=== PATIENT | male | born 1990 | race African-American/Black ===

== ENCOUNTER 2016-11-07 14:56 | Emergency (ER) | payer MEDICAID ==
[~2016-11-07] VITALS: Ht 177.8 cm; Wt 75.0 kg
[~2016-11-07 14:56] MED LIST: ALPR0.5T96 PO; CIPR-213 PO; DIAZ-56 PO; GABA-531 PO; LORA1TAB PO; MESA1.2T PO; METR-112 PO; OLAN10TA3 PO; OMEP20TA80 PO; PENTASA PO; PRED5TAB48 PO
[2016-11-07] MEDS ORDERED: ONDANSETRON HCL 4MG/2ML VIAL IV STA (15:43)
[2016-11-07] MEDS ORDERED: SODIUM CHLORIDE 0.9% 1,000 ML IV ONE (15:43)
[2016-11-07] MEDS ORDERED: MORPHINE SULFATE 4 MG/ML CPJ (NOT FOR IM USE) IV STA (15:43)
[2016-11-07 16:33] LABS: CHLORIDE 106 mEq/L (98-107); INDEX HEMOLYSI 1 (1-3); INDEX ICTERIC 1 (1-4); INDEX LIPEMIC 1 (1-3)
[2016-11-07 16:38] LABS: ALBUMIN 4.3 g/dL (3.4-5.0); ANION GAP 10; CALCIUM 9.4 mg/dL (8.5-10.1); CARBON DIOXIDE 27 mEq/L (21-32); LIPASE 63 IU/L (73-393); UREA NITROGEN BLOOD 8 mg/dL (7-21)
[2016-11-07 16:41] LABS: ALANINE AMINOTRANSFERASE 20 IU/L (13-61); eGFR > 60 mL/min (>60)
[2016-11-07] MEDS ORDERED: KETOROLAC 30MG/ML VIAL IV ONE (18:00)
[2016-11-07] MEDS ORDERED: MORPHINE SULFATE 4 MG/ML CPJ (NOT FOR IM USE) IV ONE (19:15)
[2016-11-07 21:27] LABS: BASOPHILS % 0.4 % (0.0-2.0); DIFFERENTIAL COMMENT 0; EOSINOPHILS % 0.1 % (0.0-5.0); HEMATOCRIT. 38.4 % (42.0-52.0); HEMOGLOBIN. 12.5 g/dL (14.0-18.0); MEAN CORPUSCULAR HEMOGLOBIN 25.7 pg (28.0-32.0); MEAN CORPUSCULAR HGB CONC 32.5 g/dL (31.0-37.0); MEAN PLATELET VOLUME 7.5 fl (7.4-10.4); MONOCYTES % 6.9 % (2.0-8.0); NEUTROPHILS % 82.6 % (40.0-76.0); PLATELET 163 x1000/uL (130-400); RED BLOOD CELL COUNT 4.86 mill/uL (4.7-6.1); RED CELL DISTRIBUTION WIDTH 13.8 % (11.6-14.6); WHITE BLOOD COUNT 11.8 x1000/uL (4.5-11.0)
[2016-11-07 21:33] LABS: INR 1.1; PROTHROMBIN TIME 11.4 sec
[2016-11-07 21:40] LABS: CLARITY URINE CLEAR (CLEAR); COLOR URINE YELLOW (YELLOW); GLUCOSE URINE NEGATIVE (NEGATIVE); KETONES URINE NEGATIVE (NEGATIVE); LEUKOCYTE ESTERASE URINE NEGATIVE (NEGATIVE); NITRITE URINE NEGATIVE (NEGATIVE); OCCULT BLOOD URINE NEGATIVE (NEGATIVE); PH URINE 6.5 (4.5-8.0); PROTEIN URINE NEGATIVE (NEGATIVE); SPECIFIC GRAVITY URINE 1.017 (1.005-1.030)
[2016-11-07 23:16] VITALS: BP 105/65
== END 2016-11-07 23:35 | disposition home or self-care (01) ==
LOC: ER 14:56
DX: R10.9 Unspecified abdominal pain (principal); K50.90 Crohn's disease, unspecified, without complications; F12.10 Cannabis abuse, uncomplicated
CPT/HCPCS: 36415; 80053; 81003; 83690; 85025; 85610; 96361; 96374; 96375; 96376; 99285; C1893; J1885; J2270; J2405; J7030; Z7610

== ENCOUNTER 2016-11-11 15:54 | Emergency (ER) | payer MEDICAID ==
[~2016-11-11] VITALS: Ht 170.2 cm; Wt 70.0 kg
[2016-11-11 15:59] VITALS: BP 108/64
== END 2016-11-11 23:09 | disposition left against medical advice (07) ==
LOC: ER 15:56
DX: R10.9 Unspecified abdominal pain (principal); Z53.21 Procedure and treatment not carried out due to patient leaving prior to being seen by health care provider

== ENCOUNTER 2016-11-11 16:33 | Emergency (ER) | payer MEDICAID ==
[~2016-11-11] VITALS: Ht 170.2 cm; Wt 54.0 kg
[2016-11-11 16:51] VITALS: BP 119/72
== END 2016-11-11 22:58 | disposition left against medical advice (07) ==
LOC: ER 22:15
DX: R10.9 Unspecified abdominal pain (principal); Z53.21 Procedure and treatment not carried out due to patient leaving prior to being seen by health care provider

== ENCOUNTER 2017-03-23 13:43 | Inpatient (IN) | payer MEDICAID ==
[~2017-03-23] VITALS: Ht 175.3 cm; Wt 51.7 kg
[~2017-03-23 13:43] MED LIST changes: +ALPR0.5T PO; -ALPR0.5T96 PO; -DIAZ-56 PO; +DIAZ5TAB PO; -METR-112 PO; +METR500T4 PO; +OMEP20TA2 PO; -OMEP20TA80 PO
[2017-03-23] MEDS ORDERED: ONDANSETRON HCL 4MG/2ML VIAL IV STA (14:51)
[2017-03-23] MEDS ORDERED: MORPHINE SULFATE 4 MG/ML CPJ (NOT FOR IM USE) IV STA (14:51)
[2017-03-23] MEDS ORDERED: SODIUM CHLORIDE 0.9% 1,000 ML IV ONE ×2 (14:51→18:23)
[2017-03-23] MEDS ORDERED: LORAZEPAM 2MG/ML CPJ IV ONE ×3 (15:00→21:30)
[2017-03-23 15:20] LABS: CHLORIDE 106 mEq/L (98-107)
[2017-03-23 15:24] LABS: INR 1.1; PROTHROMBIN TIME 11.9 sec (9.4-11.6)
[2017-03-23 15:25] LABS: CARBON DIOXIDE 24 mEq/L (21-32)
[2017-03-23 15:26] LABS: HEMATOCRIT. 48.6 % (42.0-52.0); HEMOGLOBIN. 15.9 g/dL (14.0-18.0); MEAN CORPUSCULAR HEMOGLOBIN 26.7 pg (28.0-32.0); MEAN CORPUSCULAR VOLUME 81.4 fL (80.0-94.0); MEAN PLATELET VOLUME 9.4 fl (7.4-10.4); PLATELET 192 x1000/uL (130-400); RED BLOOD CELL COUNT 5.97 mill/uL (4.7-6.1); RED CELL DISTRIBUTION WIDTH 13.6 % (11.6-14.6)
[2017-03-23 16:08] LABS: PLATELET ESTIMATE NORMAL
[2017-03-23 18:54] LABS: CLARITY URINE CLOUDY (CLEAR); COLOR URINE DARK YELLOW (YELLOW); GLUCOSE URINE NEGATIVE (NEGATIVE); KETONES URINE 1+ (NEGATIVE); LEUKOCYTE ESTERASE URINE NEGATIVE (NEGATIVE); NITRITE URINE NEGATIVE (NEGATIVE); OCCULT BLOOD URINE 2+ (NEGATIVE); PROTEIN URINE 2+ (NEGATIVE); SPECIFIC GRAVITY URINE 1.038 (1.005-1.030)
[2017-03-23 19:08] LABS: *AMPHETAMINES SCREEN URINE NEGATIVE (NEGATIVE); *BARBITURATES SCREEN URINE NEGATIVE (NEGATIVE); *BENZODIAZEPINES SCREEN URINE NEGATIVE (NEGATIVE); *COCAINE SCREEN URINE NEGATIVE (NEGATIVE); CANNABINOID URINE SCREEN PRESUMTIVE POSITIVE (NEGATIVE); METHADONE URINE SCREEN NEGATIVE (NEGATIVE); OPIATES URINE SCREEN PRESUMTIVE POSITIVE (NEGATIVE); PHENCYCLIDINE URINE SCREEN NEGATIVE (NEGATIVE)
[2017-03-23] MEDS ORDERED: MORPHINE SULFATE 4 MG/ML CPJ (NOT FOR IM USE) IV ONE (21:15)
[2017-03-23] MEDS ORDERED: ONDANSETRON HCL 4MG/2ML VIAL IV ONE (21:15)
[2017-03-24] MEDS ORDERED: KETOROLAC 30MG/ML VIAL IV ONE (04:30)
[2017-03-24] MEDS ORDERED: SODIUM CHLORIDE 0.9% 1,000 ML IV ONE (06:45)
[2017-03-24] MEDS ORDERED: MORPHINE SULFATE 4 MG/ML CPJ (NOT FOR IM USE) IV ONE (08:45)
[2017-03-24 12:33] VITALS: BP 107/69
[2017-03-24 12:45] VITALS: BP 107/69
[2017-03-24] MEDS ORDERED: MORPHINE SULFATE 4 MG/ML CPJ (NOT FOR IM USE) IV PRN (13:15)
[2017-03-24] MEDS ORDERED: ONDANSETRON HCL 4MG/2ML VIAL IV PRN (13:15)
[2017-03-24] MEDS ORDERED: SODIUM CHLORIDE 0.9% 1,000 ML IV SCH (14:15)
[2017-03-24] MEDS ORDERED: HYDROCODONE/ACETAMINOPHEN 10/325MG TABLET PO PRN (14:15)
[2017-03-24] MEDS ORDERED: DEXT 5%/0.45% NACL KCL 20MEQ/L 1,000 ML IV SCH (15:00)
[2017-03-24] MEDS: METRONIDAZOLE 500MG TABLET PO SCH ×2 (15:00→23:05)
[2017-03-24 16:00] VITALS: BP 114/63
[2017-03-24] MEDS: DICYCLOMINE HCL 20MG TABLET PO SCH ×2 (17:50→23:12)
[2017-03-24 20:00] VITALS: BP 115/63
[2017-03-24] MEDS: MORPHINE SULFATE 4 MG/ML CPJ (NOT FOR IM USE) IV PRN (22:59)
[2017-03-25] VITALS: BP 121/61
[2017-03-25] MEDS: MORPHINE SULFATE 4 MG/ML CPJ (NOT FOR IM USE) IV PRN ×2 (02:43→09:25)
[2017-03-25 04:00] VITALS: BP 123/64
[2017-03-25] MEDS: DICYCLOMINE HCL 20MG TABLET PO SCH ×2 (06:00→11:10)
[2017-03-25 08:00] VITALS: BP 107/60
[2017-03-25] MEDS: METRONIDAZOLE 500MG TABLET PO SCH (09:09)
[2017-03-25 12:00] VITALS: BP 109/72
[2017-03-25 15:04] VITALS: BP 109/72
== END 2017-03-25 15:20 | disposition home or self-care (01) | DRG 245 ==
LOC: ER 14:03 → 6EST 03-24 02:45 → ENRESERV 03-24 11:17
PROVIDERS: ADMIT Internal Medicine; ATTEND Internal Medicine
DX: K50.90 Crohn's disease, unspecified, without complications (principal); E83.52 Hypercalcemia; Z91.19 Patient's noncompliance with other medical treatment and regimen; Z79.2 Long term (current) use of antibiotics; Z76.5 Malingerer [conscious simulation]; Z79.899 Other long term (current) drug therapy
CPT/HCPCS: 36415; 74176; 80053; 80305; 81001; 83690; 85025; 85610; 99285; C1893; J1885; J2060; J2270; J2405; J7030

== ENCOUNTER 2017-08-09 19:16 | Inpatient (IN) | payer MEDICAID ==
[~2017-08-09] VITALS: Ht 175.3 cm; Wt 59.0 kg
[~2017-08-09 19:16] MED LIST changes: +METR-218 PO; -METR500T4 PO
[2017-08-09] MEDS ORDERED: ONDANSETRON HCL 4MG/2ML INJ IV STA (19:55)
[2017-08-09] MEDS ORDERED: MORPHINE SULFATE 4 MG/ML CPJ (NOT FOR IM USE) IV STA (19:55)
[2017-08-09] MEDS ORDERED: SODIUM CHLORIDE 0.9% 1,000 ML IV ONE (19:55)
[2017-08-09 20:29] LABS: BASOPHILS % 0.3 % (0.0-2.0); EOSINOPHILS % 0.1 % (0.0-5.0); HEMOGLOBIN. 13.9 g/dL (14.0-18.0); LYMPHOCYTES % 7.3 % (20.0-50.0); MEAN CORPUSCULAR VOLUME 81.7 fL (80.0-94.0); NEUTROPHILS % 83.3 % (40.0-76.0); PLATELET 118 x1000/uL (130-400); RED BLOOD CELL COUNT 5.13 mill/uL (4.7-6.1); RED CELL DISTRIBUTION WIDTH 12.4 % (11.6-14.6)
[2017-08-09 20:36] LABS: INR 1.2; PROTHROMBIN TIME 12.2 sec (9.4-11.6)
[2017-08-09 20:44] LABS: CHLORIDE 107 mEq/L (98-107)
[2017-08-09] MEDS ORDERED: SODIUM CHLORIDE 0.9% 1000ML BAG (SEPSIS BOLUS) IV ONE (22:15)
[2017-08-09] MEDS ORDERED: IPRATROPIUM/ALBUTEROL 0.5-3(2.5)MG/3ML NEB INH PRN (23:00)
[2017-08-09] MEDS ORDERED: ACETAMINOPHEN 650MG/20.3ML UDC GT PRN (23:00)
[2017-08-09] MEDS ORDERED: HYDROCODONE/ACETAMINOPHEN 5/325MG TABLET PO PRN (23:00)
[2017-08-09] MEDS ORDERED: DIPHENHYDRAMINE 50MG/ML VIAL IV PRN (23:00)
[2017-08-09] MEDS ORDERED: CLONIDINE 0.1MG TABLET PO PRN (23:00)
[2017-08-09] MEDS ORDERED: ACETAMINOPHEN 325MG TABLET PO PRN (23:00)
[2017-08-09] MEDS ORDERED: ACETAMINOPHEN 650MG SUPP PR PRN (23:00)
[2017-08-09] MEDS ORDERED: MAGNESIUM/ALUMINUM HYDROXIDE/SIMETHICONE 30ML UDC PO PRN (23:00)
[2017-08-09] MEDS ORDERED: DOCUSATE SODIUM 100MG CAPSULE PO PRN (23:00)
[2017-08-09] MEDS ORDERED: GUAIFENESIN 200MG/10ML SUGAR FREE UDC PO PRN (23:00)
[2017-08-09] MEDS ORDERED: ONDANSETRON HCL 4MG/2ML INJ IV PRN (23:00)
[2017-08-10] VITALS (7 sets, daily range): BP systolic 125–140; BP diastolic 77–91
[2017-08-10] MEDS ORDERED: METOCLOPRAMIDE HCL 10MG/2ML VIAL IV SCH
[2017-08-10] MEDS ORDERED: NA PHOS,M-B/NA PHOS,DI-BA ENEMA 118ML PR PRN (01:07)
[2017-08-10] MEDS: MORPHINE SULFATE 4 MG/ML CPJ (NOT FOR IM USE) IV PRN ×2 (01:26→06:14)
[2017-08-10] MEDS: SODIUM CHLORIDE 0.45% 1,000 ML IV SCH ×2 (05:42→13:37)
[2017-08-10 07:30] LABS: CLARITY URINE CLEAR (CLEAR); COLOR URINE YELLOW (YELLOW); KETONES URINE TRACE (NEGATIVE); LEUKOCYTE ESTERASE URINE NEGATIVE (NEGATIVE); NITRITE URINE NEGATIVE (NEGATIVE); OCCULT BLOOD URINE NEGATIVE (NEGATIVE); PROTEIN URINE NEGATIVE (NEGATIVE); SPECIFIC GRAVITY URINE 1.031 (1.005-1.030); UROBILINOGEN URINE 0.2 E.U./dL (0.2-1.0)
[2017-08-10 07:31] LABS: BASOPHILS % 0.4 % (0.0-2.0); EOSINOPHILS % 2.6 % (0.0-5.0); HEMATOCRIT. 40.9 % (42.0-52.0); HEMOGLOBIN. 13.4 g/dL (14.0-18.0); LYMPHOCYTES % 19.3 % (20.0-50.0); MEAN CORPUSCULAR HEMOGLOBIN 26.9 pg (28.0-32.0); MEAN CORPUSCULAR VOLUME 82.3 fL (80.0-94.0); MEAN PLATELET VOLUME 9.4 fl (7.4-10.4); MONOCYTES % 10.5 % (2.0-8.0); NEUTROPHILS % 67.2 % (40.0-76.0); PLATELET 125 x1000/uL (130-400); RED BLOOD CELL COUNT 4.97 mill/uL (4.7-6.1); RED CELL DISTRIBUTION WIDTH 12.4 % (11.6-14.6)
[2017-08-10 07:45] LABS: CHLORIDE 108 mEq/L (98-107)
[2017-08-10 07:54] LABS: HDL CHOLESTEROL 29 mg/dL (40-59); LDL CHOLESTEROL 67 mg/dL (5-100)
[2017-08-10 07:58] LABS: *AMPHETAMINES SCREEN URINE NEGATIVE (NEGATIVE); *BARBITURATES SCREEN URINE NEGATIVE (NEGATIVE); *BENZODIAZEPINES SCREEN URINE NEGATIVE (NEGATIVE); *COCAINE SCREEN URINE NEGATIVE (NEGATIVE); CANNABINOID URINE SCREEN PRESUMTIVE POSITIVE (NEGATIVE); METHADONE URINE SCREEN NEGATIVE (NEGATIVE); OPIATES URINE SCREEN PRESUMTIVE POSITIVE (NEGATIVE); PHENCYCLIDINE URINE SCREEN NEGATIVE (NEGATIVE)
[2017-08-10] MEDS ORDERED: ENOXAPARIN 40MG/0.4ML SYR SUBCUT SCH (09:00)
[2017-08-10] MEDS ORDERED: FAMOTIDINE 20MG/2ML VIAL IV SCH (09:00)
[2017-08-10] MEDS: METOCLOPRAMIDE HCL 10MG TABLET PO SCH ×2 (12:34→18:30)
[2017-08-10] MEDS ORDERED: METHYLPREDNISOLONE SOD SUCC 40 MG/ML VIAL IV SCH (14:50)
[2017-08-10] MEDS ORDERED: MESALAMINE 250MG CAPSULE EXTENDED RELEASE PO SCH (22:15)
== END 2017-08-10 22:37 | disposition left against medical advice (07) | DRG 282 ==
LOC: ER 19:28 → 6EST 22:23 → EDBEDREQ 22:28 → EDBEDREQTM 22:28 → ENRESERV 22:33
PROVIDERS: ADMIT Family Medicine; ATTEND Family Medicine
DX: K85.90 Acute pancreatitis without necrosis or infection, unspecified (principal); E87.2 Acidosis; M62.82 Rhabdomyolysis; K50.90 Crohn's disease, unspecified, without complications; F20.9 Schizophrenia, unspecified; Z53.21 Procedure and treatment not carried out due to patient leaving prior to being seen by health care provider; Z79.899 Other long term (current) drug therapy; E86.0 Dehydration; F31.9 Bipolar disorder, unspecified
CPT/HCPCS: 36415; 74022; 80061; 80305; 83605; 83880; 84484; 93005; 96361; 96374; 96375; 99285; J1650; J2270; J2405; J2920; J3490; J7030; J8597

== ENCOUNTER 2018-07-21 10:34 | Inpatient (IN) | payer MEDICAID ==
[~2018-07-21] VITALS: Ht 170.2 cm; Wt 51.7 kg
[~2018-07-21 10:34] MED LIST changes: -CIPR-213 PO; -METR-218 PO
[2018-07-21] MEDS ORDERED: SODIUM CHLORIDE 0.9% 1,000 ML IV ONE (11:06)
[2018-07-21] MEDS ORDERED: KETOROLAC 30MG/ML VIAL IV STA (11:06)
[2018-07-21 11:40] LABS: HEMATOCRIT. 57.3 % (42.0-52.0); HEMOGLOBIN. 18.9 g/dL (14.0-18.0); MEAN CORPUSCULAR HEMOGLOBIN 26.6 pg (28.0-32.0); MEAN CORPUSCULAR VOLUME 80.8 fL (80.0-94.0); MEAN PLATELET VOLUME 8.3 fl (7.4-10.4); PLATELET 317 x1000/uL (130-400); RED CELL DISTRIBUTION WIDTH 13.7 % (11.6-14.6)
[2018-07-21 12:46] LABS: PLATELET ESTIMATE NORMAL
[2018-07-21 12:50] LABS: CHLORIDE 102 mEq/L (98-107)
[2018-07-21 12:51] LABS: INR 1.1; PROTHROMBIN TIME 10.8 sec (9.1-11.1)
[2018-07-21] MEDS ORDERED: MAGNESIUM/ALUMINUM HYDROXIDE/SIMETHICONE 30ML UDC PO PRN (14:15)
[2018-07-21] MEDS ORDERED: DIPHENHYDRAMINE 50MG/ML VIAL IV PRN (14:15)
[2018-07-21] MEDS ORDERED: NA PHOS,M-B/NA PHOS,DI-BA ENEMA 118ML PR PRN (14:15)
[2018-07-21] MEDS ORDERED: ONDANSETRON HCL 4MG/2ML INJ IV PRN (14:15)
[2018-07-21] MEDS ORDERED: IPRATROPIUM/ALBUTEROL 0.5-3(2.5)MG/3ML NEB INH PRN (14:15)
[2018-07-21] MEDS ORDERED: DOCUSATE SODIUM 100MG CAPSULE PO PRN (14:15)
[2018-07-21] MEDS ORDERED: LEVOFLOXACIN 500MG PREMIX 100 ML IV SCH ×2 (14:15→14:51)
[2018-07-21] MEDS ORDERED: ACETAMINOPHEN 325MG TABLET PO PRN (14:15)
[2018-07-21] MEDS ORDERED: CLONIDINE 0.1MG TABLET PO PRN (14:15)
[2018-07-21] MEDS ORDERED: GUAIFENESIN 200MG/10ML SUGAR FREE UDC PO PRN (14:15)
[2018-07-21] MEDS: METHYLPREDNISOLONE SOD SUCC 125 MG/2 ML VIAL IV SCH (14:49)
[2018-07-21 16:00] VITALS: BP 112/68
[2018-07-21] MEDS: HYDROCODONE/ACETAMINOPHEN 10/325MG TABLET PO PRN (16:09)
[2018-07-21] MEDS: LORAZEPAM 2MG/ML CPJ IV PRN (16:09)
[2018-07-21] MEDS: MORPHINE SULFATE 4 MG/ML CPJ (NOT FOR IM USE) IV PRN (17:46)
[2018-07-21 17:55] VITALS: BP 118/68
[2018-07-21] MEDS ORDERED: LEVOFLOXACIN 500MG PREMIX 100 ML IV NR (19:30)
[2018-07-21 20:00] VITALS: BP 104/68
[2018-07-21] MEDS: SODIUM CHLORIDE 0.45% 1,000 ML IV SCH (21:20)
[2018-07-21] MEDS: METRONIDAZOLE 500 MG PREMIX 100 ML IV SCH (23:03)
[2018-07-21] MEDS: HYDROMORPHONE HCL/PF 2MG/ML CPJ IV PRN (23:03)
[2018-07-22] VITALS (7 sets, daily range): BP systolic 108–157; BP diastolic 60–76
[2018-07-22] MEDS: METHYLPREDNISOLONE SOD SUCC 125 MG/2 ML VIAL IV SCH ×5 (00:53→23:11)
[2018-07-22] MEDS: LORAZEPAM 2MG/ML CPJ IV PRN ×2 (01:03→13:51)
[2018-07-22] MEDS: SODIUM CHLORIDE 0.45% 1,000 ML IV SCH (03:12)
[2018-07-22] MEDS: HYDROMORPHONE HCL/PF 2MG/ML CPJ IV PRN ×5 (03:18→23:15)
[2018-07-22] MEDS: MORPHINE SULFATE 4 MG/ML CPJ (NOT FOR IM USE) IV PRN ×3 (04:49→16:58)
[2018-07-22] MEDS: METRONIDAZOLE 500 MG PREMIX 100 ML IV SCH ×3 (05:52→23:10)
[2018-07-22] MEDS: DEXT 5%/0.45% NACL 1000ML 1,000 ML IV SCH (15:00)
[2018-07-22 18:38] LABS: HEMATOCRIT. 47.1 % (42.0-52.0); HEMOGLOBIN. 15.4 g/dL (14.0-18.0); MEAN CORPUSCULAR HEMOGLOBIN 26.3 pg (28.0-32.0); MEAN CORPUSCULAR VOLUME 80.8 fL (80.0-94.0); MEAN PLATELET VOLUME 8.7 fl (7.4-10.4); PLATELET 213 x1000/uL (130-400); RED BLOOD CELL COUNT 5.83 mill/uL (4.7-6.1); RED CELL DISTRIBUTION WIDTH 13.2 % (11.6-14.6)
[2018-07-22 18:41] LABS: CHLORIDE 104 mEq/L (98-107)
[2018-07-22 18:52] LABS: T4 FREE 0.89 ng/dL (0.76-1.46)
[2018-07-22 19:02] LABS: CREATINE KINASE 1884 IU/L (39-308)
[2018-07-22] MEDS: HYDROCODONE/ACETAMINOPHEN 10/325MG TABLET PO PRN (20:01)
[2018-07-22 22:27] LABS: PLATELET ESTIMATE NORMAL
[2018-07-23] MEDS: DEXT 5%/0.45% NACL 1000ML 1,000 ML IV SCH ×2 (02:08→11:00)
[2018-07-23] MEDS: HYDROMORPHONE HCL/PF 2MG/ML CPJ IV PRN ×7 (02:16→21:09)
[2018-07-23] MEDS: METRONIDAZOLE 500 MG PREMIX 100 ML IV SCH ×3 (05:10→21:08)
[2018-07-23] MEDS: METHYLPREDNISOLONE SOD SUCC 125 MG/2 ML VIAL IV SCH ×3 (05:10→17:26)
[2018-07-23 05:15] VITALS: BP 106/72
[2018-07-23 08:14] VITALS: BP 132/72
[2018-07-23 12:58] VITALS: BP 113/73
[2018-07-23] MEDS: SODIUM BICARBONATE 50 MEQ in DEXTROSE 5% WATER 1,000 ML IV SCH (14:00)
[2018-07-23] MEDS ORDERED: LEVOFLOXACIN 250MG PREMIX 50 ML IV SCH ×2 (14:00→18:00)
[2018-07-23 16:00] VITALS: BP 106/64
[2018-07-23] MEDS: SODIUM POLYSTYRENE SULFONATE 15 G/60 ML BOT PO NR ×2 (16:00→16:51)
[2018-07-23 19:09] LABS: HEMATOCRIT. 43.8 % (42.0-52.0); HEMOGLOBIN. 14.3 g/dL (14.0-18.0); MEAN CORPUSCULAR HEMOGLOBIN 26.2 pg (28.0-32.0); MEAN CORPUSCULAR VOLUME 80.5 fL (80.0-94.0); MEAN PLATELET VOLUME 8.4 fl (7.4-10.4); PLATELET 190 x1000/uL (130-400); RED BLOOD CELL COUNT 5.44 mill/uL (4.7-6.1); RED CELL DISTRIBUTION WIDTH 12.8 % (11.6-14.6)
[2018-07-23 19:18] LABS: CHLORIDE 100 mEq/L (98-107)
[2018-07-23 20:00] VITALS: BP 130/72
[2018-07-23 21:10] LABS: PLATELET ESTIMATE NORMAL
[2018-07-24] VITALS: BP 117/62
[2018-07-24] MEDS ORDERED: PANTOPRAZOLE SODIUM 40 MG/VIAL IV NR
[2018-07-24] MEDS: METHYLPREDNISOLONE SOD SUCC 125 MG/2 ML VIAL IV SCH ×5 (00:14→23:45)
[2018-07-24] MEDS: HYDROMORPHONE HCL/PF 2MG/ML CPJ IV PRN ×6 (00:15→21:23)
[2018-07-24] MEDS: SODIUM BICARBONATE 50 MEQ in DEXTROSE 5% WATER 1,000 ML IV SCH ×2 (01:49→05:49)
[2018-07-24 04:00] VITALS: BP 106/64
[2018-07-24] MEDS: METRONIDAZOLE 500 MG PREMIX 100 ML IV SCH ×3 (05:47→23:46)
[2018-07-24 06:50] LABS: HEMATOCRIT. 46.9 % (42.0-52.0); HEMOGLOBIN. 15.2 g/dL (14.0-18.0); MEAN CORPUSCULAR HEMOGLOBIN 26.4 pg (28.0-32.0); MEAN CORPUSCULAR VOLUME 81.3 fL (80.0-94.0); MEAN PLATELET VOLUME 8.5 fl (7.4-10.4); PLATELET 169 x1000/uL (130-400); RED BLOOD CELL COUNT 5.77 mill/uL (4.7-6.1)
[2018-07-24 07:01] LABS: CHLORIDE 100 mEq/L (98-107)
[2018-07-24 07:22] LABS: CREATINE KINASE 594 IU/L (39-308)
[2018-07-24 08:00] VITALS: BP 109/66
[2018-07-24] MEDS: DEXT 5%/0.9% NACL 1,000 ML IV SCH ×2 (10:07→21:22)
[2018-07-24 12:00] VITALS: BP 108/65
[2018-07-24 12:26] LABS: PLATELET ESTIMATE NORMAL
[2018-07-24] MEDS ORDERED: LEVOFLOXACIN 500MG PREMIX 100 ML IV SCH (15:30)
[2018-07-24 16:00] VITALS: BP 118/75
[2018-07-24 20:00] VITALS: BP 117/68
[2018-07-24] MEDS: MUPIROCIN 2% OINT 22GM NS SCH (23:46)
[2018-07-25] VITALS: BP 111/64
[2018-07-25] MEDS: HYDROMORPHONE HCL/PF 2MG/ML CPJ IV PRN ×7 (01:10→23:35)
[2018-07-25 04:00] VITALS: BP 105/59
[2018-07-25] MEDS: METHYLPREDNISOLONE SOD SUCC 125 MG/2 ML VIAL IV SCH ×4 (06:08→23:34)
[2018-07-25] MEDS: DEXT 5%/0.9% NACL 1,000 ML IV SCH (06:09)
[2018-07-25 07:21] LABS: HEMATOCRIT. 43.2 % (42.0-52.0); HEMOGLOBIN. 13.9 g/dL (14.0-18.0); MEAN CORPUSCULAR HEMOGLOBIN 26.5 pg (28.0-32.0); MEAN CORPUSCULAR VOLUME 81.9 fL (80.0-94.0); MEAN PLATELET VOLUME 9.1 fl (7.4-10.4); PLATELET 124 x1000/uL (130-400); RED BLOOD CELL COUNT 5.27 mill/uL (4.7-6.1); RED CELL DISTRIBUTION WIDTH 12.7 % (11.6-14.6)
[2018-07-25 07:43] LABS: CHLORIDE 106 mEq/L (98-107)
[2018-07-25 07:57] LABS: CREATINE KINASE 212 IU/L (39-308)
[2018-07-25 08:00] VITALS: BP 111/63
[2018-07-25] MEDS: METRONIDAZOLE 500 MG PREMIX 100 ML IV SCH ×3 (09:26→23:35)
[2018-07-25] MEDS: MUPIROCIN 2% OINT 22GM NS SCH ×2 (09:30→21:38)
[2018-07-25] MEDS ORDERED: HYDROCODONE/ACETAMINOPHEN 5/325MG TABLET PO PRN (11:45)
[2018-07-25 12:00] VITALS: BP 123/83
[2018-07-25] MEDS ORDERED: LEVOFLOXACIN 500MG PREMIX 100 ML IV SCH (18:30)
[2018-07-25 19:58] VITALS: BP 122/77
[2018-07-25 20:15] VITALS: BP 117/76
[2018-07-26] MEDS: HYDROMORPHONE HCL/PF 2MG/ML CPJ IV PRN ×2 (02:32→05:37)
[2018-07-26 04:00] VITALS: BP 115/76
[2018-07-26] MEDS: METRONIDAZOLE 500 MG PREMIX 100 ML IV SCH (05:36)
[2018-07-26] MEDS: METHYLPREDNISOLONE SOD SUCC 125 MG/2 ML VIAL IV SCH (05:36)
[2018-07-26 07:34] LABS: HEMATOCRIT. 42.1 % (42.0-52.0); HEMOGLOBIN. 13.8 g/dL (14.0-18.0); MEAN CORPUSCULAR HEMOGLOBIN 26.4 pg (28.0-32.0); MEAN CORPUSCULAR VOLUME 80.7 fL (80.0-94.0); MEAN PLATELET VOLUME 8.8 fl (7.4-10.4); PLATELET 138 x1000/uL (130-400); RED BLOOD CELL COUNT 5.21 mill/uL (4.7-6.1); RED CELL DISTRIBUTION WIDTH 12.7 % (11.6-14.6)
[2018-07-26 07:38] LABS: CHLORIDE 105 mEq/L (98-107)
[2018-07-26 07:51] VITALS: BP 115/76
[2018-07-26 07:52] LABS: CREATINE KINASE 116 IU/L (39-308)
[2018-07-26 15:05] LABS: PLATELET ESTIMATE NORMAL
[2018-07-26 19:06] LABS: OVA & PARASITE EXAM Final report (.)
== END 2018-07-26 09:55 | disposition home or self-care (01) | DRG 254 ==
LOC: ER 10:40 → 7WST 14:01 → ENRESERV 15:57
PROVIDERS: ADMIT Internal Medicine; ATTEND Internal Medicine
DX: K59.00 Constipation, unspecified (principal); N17.0 Acute kidney failure with tubular necrosis; M62.82 Rhabdomyolysis; R65.10 Systemic inflammatory response syndrome (SIRS) of non-infectious origin without acute organ dysfunction; K50.90 Crohn's disease, unspecified, without complications; E87.5 Hyperkalemia; F20.9 Schizophrenia, unspecified; E86.0 Dehydration; N18.9 Chronic kidney disease, unspecified; F12.90 Cannabis use, unspecified, uncomplicated; R79.89 Other specified abnormal findings of blood chemistry; D72.829 Elevated white blood cell count, unspecified; F31.9 Bipolar disorder, unspecified; F41.9 Anxiety disorder, unspecified; G89.29 Other chronic pain; I12.9 Hypertensive chronic kidney disease with stage 1 through stage 4 chronic kidney disease, or unspecified chronic kidney disease; Z79.899 Other long term (current) drug therapy; R10.9 Unspecified abdominal pain
CPT/HCPCS: 36415; 74018; 76770; 80048; 82550; 82705; 84439; 84443; 84484; 87015; 87045; 87177; 87209; 87427; 87449; 87493; 89055; 96361; 96374; 99285; A6261; C1893; C9113; J1170; J1885; J1956; J2060; J2270; J2930; J3490; J7030; J7042; J7050; J7070

== ENCOUNTER 2018-07-26 18:39 | Emergency (ER) | payer MEDICAID ==
[~2018-07-26] VITALS: Ht 167.6 cm; Wt 60.0 kg
[2018-07-26] MEDS ORDERED: SODIUM CHLORIDE 0.9% 1,000 ML IV ONE (22:40)
[2018-07-26] MEDS ORDERED: FAMOTIDINE 20MG/2ML VIAL IV STA (22:40)
[2018-07-26] MEDS ORDERED: ONDANSETRON HCL 4MG/2ML INJ IV STA (22:40)
[2018-07-26] MEDS ORDERED: HALOPERIDOL LACTATE 5MG/ML VIAL IM ONE (22:45)
[2018-07-27 00:36] LABS: BASOPHILS % 0.3 % (0.0-2.0); EOSINOPHILS % 0.4 % (0.0-5.0); HEMOGLOBIN. 14.3 g/dL (14.0-18.0); LYMPHOCYTES % 9.2 % (20.0-50.0); MEAN CORPUSCULAR HEMOGLOBIN 26.2 pg (28.0-32.0); MEAN CORPUSCULAR VOLUME 80.6 fL (80.0-94.0); MEAN PLATELET VOLUME 8.5 fl (7.4-10.4); MONOCYTES % 12.1 % (2.0-8.0); PLATELET 146 x1000/uL (130-400); RED BLOOD CELL COUNT 5.46 mill/uL (4.7-6.1); RED CELL DISTRIBUTION WIDTH 12.8 % (11.6-14.6)
[2018-07-27 00:52] LABS: CHLORIDE 108 mEq/L (98-107)
[2018-07-27 01:30] LABS: CLARITY URINE CLEAR (CLEAR); COLOR URINE YELLOW (YELLOW); KETONES URINE NEGATIVE (NEGATIVE); LEUKOCYTE ESTERASE URINE NEGATIVE (NEGATIVE); NITRITE URINE NEGATIVE (NEGATIVE); OCCULT BLOOD URINE NEGATIVE (NEGATIVE); PROTEIN URINE NEGATIVE (NEGATIVE); SPECIFIC GRAVITY URINE 1.022 (1.005-1.030); UROBILINOGEN URINE 0.2 E.U./dL (0.2-1.0)
[2018-07-27 05:28] VITALS: BP 101/60
== END 2018-07-27 05:32 | disposition home or self-care (01) ==
LOC: ER 18:39
DX: R10.9 Unspecified abdominal pain (principal); K50.90 Crohn's disease, unspecified, without complications; N28.9 Disorder of kidney and ureter, unspecified
CPT/HCPCS: 36415; 80053; 81003; 83605; 83690; 85025; 96372; 96374; 96375; 99283; J1630; J2405; J3490; J7030; Z7610

== ENCOUNTER 2018-10-25 14:55 | Inpatient (IN) | payer MEDICAID ==
[~2018-10-25] VITALS: Ht 175.3 cm; Wt 59.0 kg
[2018-10-25] MEDS ORDERED: ONDANSETRON HCL 4MG/2ML INJ IV STA (15:25)
[2018-10-25] MEDS ORDERED: FAMOTIDINE 20MG/2ML VIAL IV STA (15:25)
[2018-10-25] MEDS ORDERED: MAGNESIUM/ALUMINUM HYDROXIDE/SIMETHICONE 30ML UDC PO STA (15:25)
[2018-10-25] MEDS ORDERED: VISCOUS LIDOCAINE 2% 15 ML UDC PO STA (15:25)
[2018-10-25 16:38] LABS: BASOPHILS % 0.2 % (0.0-2.0); EOSINOPHILS % 0.1 % (0.0-5.0); HEMATOCRIT. 47.3 % (42.0-52.0); HEMOGLOBIN. 15.8 g/dL (14.0-18.0); LYMPHOCYTES % 10.3 % (20.0-50.0); MEAN CORPUSCULAR HEMOGLOBIN 26.5 pg (28.0-32.0); MEAN CORPUSCULAR VOLUME 79.6 fL (80.0-94.0); MEAN PLATELET VOLUME 8.9 fl (7.4-10.4); NEUTROPHILS % 85.4 % (40.0-76.0); PLATELET 229 x1000/uL (130-400); RED BLOOD CELL COUNT 5.94 mill/uL (4.7-6.1); RED CELL DISTRIBUTION WIDTH 14.6 % (11.6-14.6)
[2018-10-25] MEDS ORDERED: MORPHINE SULFATE 4 MG/ML CPJ (NOT FOR IM USE) IV ONE (17:30)
[2018-10-25 17:33] LABS: CHLORIDE 105 mEq/L (98-107)
[2018-10-25] MEDS ORDERED: SODIUM CHLORIDE 0.9% 1,000 ML IV ONE (19:58)
[2018-10-25] MEDS ORDERED: MORPHINE SULFATE 4 MG/ML CPJ (NOT FOR IM USE) IV STA (19:58)
[2018-10-25] MEDS ORDERED: IOHEXOL-300 100 ML BOTTLE ONE (22:31)
[2018-10-26 05:45] VITALS: BP 122/77
[2018-10-26 08:00] VITALS: BP 159/94
[2018-10-26] MEDS ORDERED: CLONIDINE 0.1MG TABLET PO PRN (08:45)
[2018-10-26] MEDS ORDERED: IPRATROPIUM/ALBUTEROL 0.5-3(2.5)MG/3ML NEB INH PRN (08:45)
[2018-10-26] MEDS ORDERED: ACETAMINOPHEN 325MG TABLET PO PRN (08:45)
[2018-10-26] MEDS ORDERED: MAGNESIUM/ALUMINUM HYDROXIDE/SIMETHICONE 30ML UDC PO PRN (08:45)
[2018-10-26] MEDS ORDERED: ONDANSETRON HCL 4MG/2ML INJ IV PRN (08:45)
[2018-10-26] MEDS ORDERED: DOCUSATE SODIUM 100MG CAPSULE PO PRN (08:45)
[2018-10-26] MEDS ORDERED: GUAIFENESIN 200MG/10ML SUGAR FREE UDC PO PRN (08:45)
[2018-10-26] MEDS ORDERED: HYDROCODONE/ACETAMINOPHEN 5/325MG TABLET PO PRN (11:30)
[2018-10-26] MEDS: ENOXAPARIN 40MG/0.4ML SYR SUBCUT SCH (12:04)
[2018-10-26 15:50] LABS: PHOSPHORUS 4.4 mg/dL (2.5-4.9)
[2018-10-26 16:41] LABS: CREATINE KINASE MB FRACTION 613.7 ng/mL (0.5-3.6)
[2018-10-26] MEDS: MORPHINE SULFATE 4 MG/ML CPJ (NOT FOR IM USE) IV PRN ×2 (18:31→22:51)
[2018-10-26 20:00] VITALS: BP 152/94
[2018-10-27 01:32] LABS: CREATINE KINASE MB FRACTION 823.5 ng/mL (0.5-3.6)
[2018-10-27] MEDS: MORPHINE SULFATE 4 MG/ML CPJ (NOT FOR IM USE) IV PRN ×5 (03:53→23:11)
[2018-10-27 04:00] VITALS: BP 142/102
[2018-10-27 08:00] VITALS: BP 110/67
[2018-10-27] MEDS: ENOXAPARIN 40MG/0.4ML SYR SUBCUT SCH (09:44)
[2018-10-27 11:39] LABS: BG BASE EXCESS -2.6 mmol/L (-2.0-2.0); BG CARBOXYHEMOGLOBIN 1.3 % (0.5-1.5); BG DEOXYHEMOGLOBIN 2.6 % (0.0-5.0); BG FRACTION INSPIRED OXYGEN 21; BG HCO3 ACT 22.3 mmol/L (22.0-26.0); BG METHEMOGLOBIN 0.3 % (0.0-1.5); BG OXYGEN SATURATION 97.4 % (92.0-98.5); BG OXYHEMOGLOBIN 95.8 % (94.0-97.0); BG PCO2 39.1 mmHg (35.0-45.0); BG PH 7.374 (7.350-7.450); BG PO2 96.2 mmHg (75.0-100.0); BG SAMPLE SITE RIGHT RADIAL; BG TOTAL HEMOGLOBIN 15.3 g/dL (12.0-18.0); BG VENT MODE ROOM AIR
[2018-10-27 12:00] VITALS: BP 111/66
[2018-10-27 15:32] LABS: CHLORIDE 99 mEq/L (98-107)
[2018-10-27 15:34] LABS: BASOPHILS % 0.9 % (0.0-2.0); HEMATOCRIT. 46.2 % (42.0-52.0); HEMOGLOBIN. 15.2 g/dL (14.0-18.0); LYMPHOCYTES % 14.7 % (20.0-50.0); MEAN CORPUSCULAR HEMOGLOBIN 26.3 pg (28.0-32.0); MEAN CORPUSCULAR VOLUME 80.3 fL (80.0-94.0); MEAN PLATELET VOLUME 8.6 fl (7.4-10.4); MONOCYTES % 10.9 % (2.0-8.0); NEUTROPHILS % 73.5 % (40.0-76.0); PLATELET 178 x1000/uL (130-400); RED BLOOD CELL COUNT 5.76 mill/uL (4.7-6.1); RED CELL DISTRIBUTION WIDTH 14.2 % (11.6-14.6)
[2018-10-27 15:40] LABS: HDL CHOLESTEROL 38 mg/dL (40-59); LDL CHOLESTEROL 129 mg/dL (5-100)
[2018-10-27 17:08] LABS: CREATINE KINASE 90768 IU/L (39-308)
[2018-10-27] MEDS: SODIUM BICARBONATE 100 MEQ in DEXTROSE 5% WATER 1,000 ML IV SCH (18:40)
[2018-10-27 18:56] LABS: *AMPHETAMINES SCREEN URINE NEGATIVE (NEGATIVE)
[2018-10-27 18:57] LABS: *BARBITURATES SCREEN URINE NEGATIVE (NEGATIVE); *BENZODIAZEPINES SCREEN URINE NEGATIVE (NEGATIVE); *COCAINE SCREEN URINE NEGATIVE (NEGATIVE); METHADONE URINE SCREEN NEGATIVE (NEGATIVE); OPIATES URINE SCREEN PRESUMTIVE POSITIVE (NEGATIVE); PHENCYCLIDINE URINE SCREEN NEGATIVE (NEGATIVE)
[2018-10-27 18:58] LABS: CANNABINOID URINE SCREEN PRESUMTIVE POSITIVE (NEGATIVE)
[2018-10-27 20:00] VITALS: BP 112/70
[2018-10-28] MEDS: MORPHINE SULFATE 4 MG/ML CPJ (NOT FOR IM USE) IV PRN ×5 (03:43→22:16)
[2018-10-28 04:00] VITALS: BP 135/88
[2018-10-28] MEDS: SODIUM BICARBONATE 100 MEQ in DEXTROSE 5% WATER 1,000 ML IV SCH ×4 (04:09→23:02)
[2018-10-28 06:07] LABS: BASOPHILS % 0.2 % (0.0-2.0); EOSINOPHILS % 0.1 % (0.0-5.0); LYMPHOCYTES % 17.4 % (20.0-50.0); MEAN CORPUSCULAR HEMOGLOBIN 26.4 pg (28.0-32.0); MEAN CORPUSCULAR VOLUME 79.2 fL (80.0-94.0); MEAN PLATELET VOLUME 8.2 fl (7.4-10.4); MONOCYTES % 13.7 % (2.0-8.0); NEUTROPHILS % 68.6 % (40.0-76.0); PLATELET 149 x1000/uL (130-400); RED BLOOD CELL COUNT 5.31 mill/uL (4.7-6.1); RED CELL DISTRIBUTION WIDTH 14.1 % (11.6-14.6)
[2018-10-28 07:08] LABS: CHLORIDE 94 mEq/L (98-107)
[2018-10-28 08:00] VITALS: BP 138/84
[2018-10-28] MEDS: ENOXAPARIN 40MG/0.4ML SYR SUBCUT SCH (09:00)
[2018-10-28 09:07] LABS: CREATINE KINASE 67830 IU/L (39-308)
[2018-10-28 12:00] VITALS: BP 108/66
[2018-10-28 14:13] LABS: HEPATITIS B SURFACE ANTIGEN NEGATIVE
[2018-10-28 14:43] LABS: HEPATITIS A AB IGM NEGATIVE (NEGATIVE)
[2018-10-28 16:00] VITALS: BP 119/79
[2018-10-28 20:00] VITALS: BP 131/75
[2018-10-29] VITALS: BP 125/75
[2018-10-29] MEDS: MORPHINE SULFATE 4 MG/ML CPJ (NOT FOR IM USE) IV PRN ×5 (02:28→22:05)
[2018-10-29 04:00] VITALS: BP 129/76
[2018-10-29 05:37] LABS: BASOPHILS % 0.3 % (0.0-2.0); EOSINOPHILS % 0.1 % (0.0-5.0); HEMATOCRIT. 44.3 % (42.0-52.0); HEMOGLOBIN. 14.6 g/dL (14.0-18.0); LYMPHOCYTES % 12.1 % (20.0-50.0); MEAN CORPUSCULAR HEMOGLOBIN 26.2 pg (28.0-32.0); MEAN CORPUSCULAR VOLUME 79.6 fL (80.0-94.0); MEAN PLATELET VOLUME 8.2 fl (7.4-10.4); MONOCYTES % 11.8 % (2.0-8.0); NEUTROPHILS % 75.7 % (40.0-76.0); PLATELET 148 x1000/uL (130-400); RED BLOOD CELL COUNT 5.56 mill/uL (4.7-6.1); RED CELL DISTRIBUTION WIDTH 13.4 % (11.6-14.6)
[2018-10-29 06:00] LABS: CHLORIDE 92 mEq/L (98-107)
[2018-10-29] MEDS: SODIUM BICARBONATE 100 MEQ in DEXTROSE 5% WATER 1,000 ML IV SCH (08:58)
[2018-10-29] MEDS: ENOXAPARIN 40MG/0.4ML SYR SUBCUT SCH (08:58)
[2018-10-29 12:00] VITALS: BP 117/72
[2018-10-29 13:11] LABS: HIV SCREEN 4G Non Reactive (Non Reactive)
[2018-10-29] MEDS: POTASSIUM CHLORIDE 20MEQ TABLET SR PO NR ×2 (14:18→14:29)
[2018-10-29] MEDS: SODIUM CHLORIDE 0.9% 1,000 ML IV SCH ×2 (14:19→22:01)
[2018-10-29] MEDS ORDERED: POTASSIUM CHLORIDE 10MEQ TABLET SR PO NR (14:30)
[2018-10-29] MEDS ORDERED: TRAMADOL 50MG TABLET PO PRN (15:15)
[2018-10-29 16:00] VITALS: BP 129/69
[2018-10-29 20:00] VITALS: BP 116/67
[2018-10-30] VITALS: BP 124/74
[2018-10-30] MEDS: MORPHINE SULFATE 4 MG/ML CPJ (NOT FOR IM USE) IV PRN ×6 (02:13→23:02)
[2018-10-30 04:00] VITALS: BP 120/74
[2018-10-30] MEDS: SODIUM CHLORIDE 0.9% 1,000 ML IV SCH ×3 (05:42→19:43)
[2018-10-30 06:31] LABS: BASOPHILS % 0.2 % (0.0-2.0); EOSINOPHILS % 1.3 % (0.0-5.0); HEMATOCRIT. 41.8 % (42.0-52.0); HEMOGLOBIN. 13.7 g/dL (14.0-18.0); LYMPHOCYTES % 26.5 % (20.0-50.0); MEAN CORPUSCULAR HEMOGLOBIN 26.4 pg (28.0-32.0); MEAN CORPUSCULAR VOLUME 80.6 fL (80.0-94.0); MEAN PLATELET VOLUME 8.3 fl (7.4-10.4); MONOCYTES % 12.5 % (2.0-8.0); NEUTROPHILS % 59.5 % (40.0-76.0); PLATELET 140 x1000/uL (130-400); RED BLOOD CELL COUNT 5.18 mill/uL (4.7-6.1); RED CELL DISTRIBUTION WIDTH 13.6 % (11.6-14.6)
[2018-10-30 06:35] LABS: CHLORIDE 102 mEq/L (98-107)
[2018-10-30 08:00] VITALS: BP 121/71
[2018-10-30] MEDS: ENOXAPARIN 40MG/0.4ML SYR SUBCUT SCH (08:56)
[2018-10-30 12:00] VITALS: BP 138/71
[2018-10-30 13:50] LABS: CREATINE KINASE 51000 IU/L (39-308)
[2018-10-30 16:00] VITALS: BP 123/71
[2018-10-30 18:43] LABS: CLARITY URINE CLEAR (CLEAR); COLOR URINE YELLOW (YELLOW); KETONES URINE NEGATIVE (NEGATIVE); LEUKOCYTE ESTERASE URINE NEGATIVE (NEGATIVE); NITRITE URINE NEGATIVE (NEGATIVE); OCCULT BLOOD URINE NEGATIVE (NEGATIVE); PROTEIN URINE NEGATIVE (NEGATIVE); SPECIFIC GRAVITY URINE 1.014 (1.005-1.030)
[2018-10-30 20:00] VITALS: BP 120/75
[2018-10-31] VITALS: BP 125/78
[2018-10-31 04:00] VITALS: BP 120/69
[2018-10-31] MEDS: MORPHINE SULFATE 4 MG/ML CPJ (NOT FOR IM USE) IV PRN ×5 (04:10→22:26)
[2018-10-31 07:52] LABS: CHLORIDE 106 mEq/L (98-107)
[2018-10-31 08:00] VITALS: BP 123/76
[2018-10-31 08:03] LABS: PHOSPHORUS 2.4 mg/dL (2.5-4.9)
[2018-10-31] MEDS: ENOXAPARIN 40MG/0.4ML SYR SUBCUT SCH ×2 (08:40→09:00)
[2018-10-31] MEDS ORDERED: POTASSIUM PHOS,M-BASIC-D-BASIC 15 MMOL in DEXT 5% WATER 245 ML IV NR (10:30)
[2018-10-31 12:00] VITALS: BP 139/89
[2018-10-31 13:23] LABS: CREATINE KINASE 18374 IU/L (39-308)
[2018-10-31 16:00] VITALS: BP 127/83
[2018-10-31 20:00] VITALS: BP 123/70
[2018-11-01] VITALS: BP 128/82
[2018-11-01] MEDS: MORPHINE SULFATE 4 MG/ML CPJ (NOT FOR IM USE) IV PRN ×3 (02:34→12:27)
[2018-11-01] MEDS: SODIUM CHLORIDE 0.9% 1,000 ML IV SCH (02:39)
[2018-11-01 04:00] VITALS: BP 111/59
[2018-11-01 08:00] VITALS: BP 141/94
[2018-11-01 08:26] LABS: CHLORIDE 104 mEq/L (98-107)
[2018-11-01 08:48] LABS: PHOSPHORUS 3.6 mg/dL (2.5-4.9)
[2018-11-01 08:49] LABS: BASOPHILS % 0.6 % (0.0-2.0); EOSINOPHILS % 1.6 % (0.0-5.0); HEMATOCRIT. 41.8 % (42.0-52.0); HEMOGLOBIN. 13.9 g/dL (14.0-18.0); LYMPHOCYTES % 28.2 % (20.0-50.0); MEAN CORPUSCULAR HEMOGLOBIN 26.5 pg (28.0-32.0); MEAN PLATELET VOLUME 8.3 fl (7.4-10.4); MONOCYTES % 12.1 % (2.0-8.0); NEUTROPHILS % 57.5 % (40.0-76.0); PLATELET 157 x1000/uL (130-400); RED BLOOD CELL COUNT 5.23 mill/uL (4.7-6.1); RED CELL DISTRIBUTION WIDTH 13.5 % (11.6-14.6)
[2018-11-01] MEDS: ENOXAPARIN 40MG/0.4ML SYR SUBCUT SCH (08:53)
[2018-11-01 09:06] LABS: SACCHAROMYCES CEREVISIAE IGG <20.0 Units (0.0-24.9)
[2018-11-01 09:20] LABS: CREATINE KINASE 7899 IU/L (39-308)
[2018-11-01 12:00] VITALS: BP 111/67
[2018-11-01 13:05] VITALS: BP 111/67
[2018-11-01 15:16] LABS: ATYPICAL pANCA <1:20 titer (Neg:<1:20)
[2018-11-02 10:06] LABS: SACCHAROMYCES CEREVISIAE IGM 21.1 Units (0.0-24.9)
== END 2018-11-01 16:41 | disposition home or self-care (01) | DRG 469 ==
LOC: ER 14:55 → 6EST 23:47 → ENRESERV 10-26 01:58
PROVIDERS: ADMIT Internal Medicine; ATTEND Internal Medicine
DX: N17.9 Acute kidney failure, unspecified (principal); E87.3 Alkalosis; K56.1 Intussusception; M62.82 Rhabdomyolysis; D72.0 Genetic anomalies of leukocytes; E87.1 Hypo-osmolality and hyponatremia; F20.9 Schizophrenia, unspecified; K50.90 Crohn's disease, unspecified, without complications; E87.6 Hypokalemia; G89.4 Chronic pain syndrome; F12.90 Cannabis use, unspecified, uncomplicated; E86.0 Dehydration; F41.9 Anxiety disorder, unspecified; R74.0 Nonspecific elevation of levels of transaminase and lactic acid dehydrogenase [LDH]; Z91.14 Patient's other noncompliance with medication regimen; Z87.19 Personal history of other diseases of the digestive system
CPT/HCPCS: 36415; 36600; 74177; 80048; 80061; 80305; 82375; 82550; 82553; 82805; 83735; 84100; 84443; 86038; 86256; 86671; 86705; 86709; 86803; 87015; 87045; 87340; 87389; 87427; 87449; 89055; 93970; 99285; C1893; J1650; J2270; J2405; J3490; J7030; J7040; J7060; J7070; Q9967

== ENCOUNTER 2019-03-25 14:22 | Emergency (ER) | payer MEDICAID ==
[~2019-03-25] VITALS: Ht 170.2 cm; Wt 59.0 kg
[2019-03-25] MEDS ORDERED: ONDANSETRON HCL 4MG/2ML INJ IV STA (15:29)
[2019-03-25] MEDS ORDERED: MORPHINE SULFATE 4 MG/ML CPJ (NOT FOR IM USE) IV STA (15:29)
[2019-03-25] MEDS ORDERED: KETOROLAC 30MG/ML VIAL IV STA (15:29)
[2019-03-25] MEDS ORDERED: SODIUM CHLORIDE 0.9% 1,000 ML IV ONE (15:29)
[2019-03-25] MEDS ORDERED: LORAZEPAM 2MG/ML CPJ IV ONE ×2 (15:30→16:30)
[2019-03-25 15:49] LABS: BASOPHILS % 0.3 % (0.0-2.0); EOSINOPHILS % 0.1 % (0.0-5.0); HEMATOCRIT. 46.8 % (42.0-52.0); HEMOGLOBIN. 15.5 g/dL (14.0-18.0); LYMPHOCYTES % 8.7 % (20.0-50.0); MEAN CORPUSCULAR HEMOGLOBIN 27.2 pg (28.0-32.0); MEAN PLATELET VOLUME 8.8 fl (7.4-10.4); MONOCYTES % 4.5 % (2.0-8.0); NEUTROPHILS % 86.4 % (40.0-76.0); PLATELET 151 x1000/uL (130-400); RED BLOOD CELL COUNT 5.71 mill/uL (4.7-6.1); RED CELL DISTRIBUTION WIDTH 13.8 % (11.6-14.6)
[2019-03-25 15:51] LABS: CHLORIDE 107 mEq/L (98-107)
[2019-03-25 15:53] LABS: PARTIAL THROMBOPLASTIN TIME 25.7 sec (23.4-31.0); PROTHROMBIN TIME 10.6 sec (9.6-11.0)
[2019-03-25 15:56] LABS: ETHANOL BLOOD < 10 mg/dL
[2019-03-25] MEDS ORDERED: OLANZAPINE 10 MG/VIAL IM ONE (17:45)
[2019-03-25] MEDS ORDERED: LORAZEPAM 2MG/ML CPJ IM ONE (17:45)
[2019-03-25 19:51] LABS: CREATINE KINASE MB FRACTION < 1.0 ng/mL (0.5-3.6)
[2019-03-25 20:08] LABS: CREATINE KINASE 154 IU/L (39-308)
[2019-03-25] MEDS ORDERED: ONDANSETRON HCL 4MG/2ML INJ IV ONE (22:15)
[2019-03-25] MEDS ORDERED: MORPHINE SULFATE 4 MG/ML CPJ (NOT FOR IM USE) IV ONE (23:30)
[2019-03-26 02:51] VITALS: BP 135/78
== END 2019-03-26 03:45 | disposition home or self-care (01) ==
LOC: ER 14:31
DX: R10.84 Generalized abdominal pain (principal); K50.90 Crohn's disease, unspecified, without complications
CPT/HCPCS: 36415; 74176; 80053; 80320; 82550; 82553; 83880; 84484; 85025; 85610; 85730; 96372; 96374; 96375; 96376; 99284; J1885; J2060; J2270; J2405; J3490; J7030; Z7610; G0480

== ENCOUNTER 2019-03-27 10:36 | Emergency (ER) | payer MEDICAID ==
[~2019-03-27] VITALS: Ht 172.7 cm; Wt 65.0 kg
[2019-03-27] MEDS ORDERED: FAMOTIDINE 20MG/2ML VIAL IV STA (10:49)
[2019-03-27] MEDS ORDERED: MORPHINE SULFATE 4 MG/ML CPJ (NOT FOR IM USE) IV STA (10:49)
[2019-03-27] MEDS ORDERED: ONDANSETRON HCL 4MG/2ML INJ IV STA (10:49)
[2019-03-27] MEDS ORDERED: SODIUM CHLORIDE 0.9% 1,000 ML IV ONE (10:49)
[2019-03-27] MEDS ORDERED: LORAZEPAM 2MG/ML CPJ IV ONE ×3 (11:00→13:30)
[2019-03-27 11:30] LABS: BASOPHILS % 0.5 % (0.0-2.0); EOSINOPHILS % 0.1 % (0.0-5.0); HEMATOCRIT. 47.3 % (42.0-52.0); HEMOGLOBIN. 15.7 g/dL (14.0-18.0); LYMPHOCYTES % 15.5 % (20.0-50.0); MEAN CORPUSCULAR VOLUME 81.2 fL (80.0-94.0); MEAN PLATELET VOLUME 8.3 fl (7.4-10.4); MONOCYTES % 9.2 % (2.0-8.0); NEUTROPHILS % 74.7 % (40.0-76.0); PLATELET 151 x1000/uL (130-400); RED BLOOD CELL COUNT 5.83 mill/uL (4.7-6.1); RED CELL DISTRIBUTION WIDTH 13.3 % (11.6-14.6)
[2019-03-27 11:37] LABS: CHLORIDE 103 mEq/L (98-107)
[2019-03-27 11:50] LABS: ETHANOL BLOOD < 10 mg/dL
[2019-03-27 12:33] LABS: PROTHROMBIN TIME 10.5 sec (9.6-11.0)
[2019-03-27] MEDS ORDERED: KETOROLAC 30MG/ML VIAL IV ONE (13:30)
[2019-03-27 14:51] LABS: CLARITY URINE CLEAR (CLEAR); COLOR URINE YELLOW (YELLOW); KETONES URINE 1+ (NEGATIVE); LEUKOCYTE ESTERASE URINE NEGATIVE (NEGATIVE); NITRITE URINE NEGATIVE (NEGATIVE); OCCULT BLOOD URINE NEGATIVE (NEGATIVE); PH URINE 5.5 (4.5-8.0); PROTEIN URINE 1+ (NEGATIVE); SPECIFIC GRAVITY URINE 1.031 (1.005-1.030); UROBILINOGEN URINE 0.2 E.U./dL (0.2-1.0)
[2019-03-27 15:07] LABS: *COCAINE SCREEN URINE NEGATIVE (NEGATIVE)
[2019-03-27 15:09] LABS: *AMPHETAMINES SCREEN URINE NEGATIVE (NEGATIVE); *BARBITURATES SCREEN URINE NEGATIVE (NEGATIVE); *BENZODIAZEPINES SCREEN URINE NEGATIVE (NEGATIVE); CANNABINOID URINE SCREEN PRESUMTIVE POSITIVE (NEGATIVE); METHADONE URINE SCREEN NEGATIVE (NEGATIVE); OPIATES URINE SCREEN PRESUMTIVE POSITIVE (NEGATIVE); PHENCYCLIDINE URINE SCREEN NEGATIVE (NEGATIVE)
[2019-03-27 16:00] VITALS: BP 110/86
== END 2019-03-27 16:27 | disposition home or self-care (01) ==
LOC: ER 10:36
DX: R10.13 Epigastric pain (principal); E86.0 Dehydration; K50.90 Crohn's disease, unspecified, without complications; N18.6 End stage renal disease; Z99.2 Dependence on renal dialysis
CPT/HCPCS: 36415; 71045; 80053; 80305; 80320; 81003; 83690; 85025; 85610; 96361; 96374; 96375; 96376; 99284; J1885; J2060; J2270; J2405; J3490; J7030; G0480

== ENCOUNTER 2019-05-31 16:00 | Inpatient (IN) | payer MEDICAID ==
[~2019-05-31] VITALS: Ht 165.1 cm; Wt 51.7 kg
[2019-05-31] MEDS ORDERED: MORPHINE SULFATE 4 MG/ML CPJ (NOT FOR IM USE) IV STA ×2 (16:41→19:58)
[2019-05-31] MEDS ORDERED: SODIUM CHLORIDE 0.9% 1,000 ML IV ONE (16:41)
[2019-05-31] MEDS ORDERED: ONDANSETRON HCL 4MG/2ML INJ IV STA ×2 (16:41→19:58)
[2019-05-31 17:04] LABS: HEMOGLOBIN. 19.8 g/dL (14.0-18.0); MEAN CORPUSCULAR HEMOGLOBIN 26.7 pg (28.0-32.0); MEAN PLATELET VOLUME 8.8 fl (7.4-10.4); PLATELET 241 x1000/uL (130-400); RED CELL DISTRIBUTION WIDTH 13.9 % (11.6-14.6)
[2019-05-31 17:08] LABS: HEMATOCRIT. 60.7 % (42.0-52.0)
[2019-05-31 17:09] LABS: CHLORIDE 106 mEq/L (98-107)
[2019-05-31 17:34] LABS: PLATELET ESTIMATE NORMAL
[2019-05-31] MEDS ORDERED: LEVOFLOXACIN 750MG PREMIX 150 ML IV ONE (19:00)
[2019-05-31] MEDS ORDERED: SODIUM CHLORIDE 0.9% 1000ML BAG (SEPSIS BOLUS) IV ONE (19:00)
[2019-05-31 21:30] VITALS: BP 130/75
[2019-05-31 22:00] VITALS: BP 130/75
[2019-05-31 22:19] VITALS: BP 130/75
[2019-05-31] MEDS ORDERED: ONDANSETRON HCL 4MG/2ML INJ IV PRN (22:30)
[2019-05-31] MEDS: SODIUM CHLORIDE 0.9% 1,000 ML IV SCH (23:09)
[2019-05-31] MEDS: HYDROMORPHONE HCL/PF 2MG/ML CPJ IV PRN (23:38)
[2019-06-01] VITALS (7 sets, daily range): BP systolic 100–133; BP diastolic 62–77
[2019-06-01 07:28] LABS: HEMATOCRIT. 48.7 % (42.0-52.0); HEMOGLOBIN. 16.1 g/dL (14.0-18.0); MEAN CORPUSCULAR HEMOGLOBIN 27.1 pg (28.0-32.0); MEAN CORPUSCULAR VOLUME 81.9 fL (80.0-94.0); MEAN PLATELET VOLUME 9.5 fl (7.4-10.4); PLATELET 161 x1000/uL (130-400); RED BLOOD CELL COUNT 5.95 mill/uL (4.7-6.1); RED CELL DISTRIBUTION WIDTH 13.8 % (11.6-14.6)
[2019-06-01] MEDS ORDERED: LEVOFLOXACIN 500MG PREMIX 100 ML IV SCH (08:15)
[2019-06-01] MEDS: MESALAMINE 400 MG CAPSULE.DR PO SCH ×3 (08:35→17:23)
[2019-06-01] MEDS: HYDROMORPHONE HCL/PF 2MG/ML CPJ IV PRN ×4 (08:36→23:33)
[2019-06-01] MEDS: SODIUM CHLORIDE 0.9% 1,000 ML IV SCH (09:27)
[2019-06-01] MEDS: METRONIDAZOLE 500 MG PREMIX 100 ML IV SCH ×2 (09:27→17:23)
[2019-06-01 10:41] LABS: CLARITY URINE CLEAR (CLEAR); COLOR URINE YELLOW (YELLOW); KETONES URINE NEGATIVE (NEGATIVE); LEUKOCYTE ESTERASE URINE NEGATIVE (NEGATIVE); NITRITE URINE NEGATIVE (NEGATIVE); OCCULT BLOOD URINE NEGATIVE (NEGATIVE); PROTEIN URINE NEGATIVE (NEGATIVE); SPECIFIC GRAVITY URINE 1.019 (1.005-1.030); UROBILINOGEN URINE 0.2 E.U./dL (0.2-1.0)
[2019-06-01 11:12] LABS: METHADONE URINE SCREEN NEGATIVE (NEGATIVE); OPIATES URINE SCREEN PRESUMTIVE POSITIVE (NEGATIVE)
[2019-06-01 11:13] LABS: *AMPHETAMINES SCREEN URINE NEGATIVE (NEGATIVE); *BARBITURATES SCREEN URINE NEGATIVE (NEGATIVE); *BENZODIAZEPINES SCREEN URINE NEGATIVE (NEGATIVE); *COCAINE SCREEN URINE NEGATIVE (NEGATIVE); CANNABINOID URINE SCREEN PRESUMTIVE POSITIVE (NEGATIVE); PHENCYCLIDINE URINE SCREEN NEGATIVE (NEGATIVE)
[2019-06-01] MEDS: LEVOFLOXACIN 250MG PREMIX 50 ML IV SCH (11:43)
[2019-06-01] MEDS: SODIUM CHLORIDE 0.45% 1,000 ML IV SCH ×2 (12:57→20:46)
[2019-06-01 13:50] LABS: PLATELET ESTIMATE NORMAL
[2019-06-02] MEDS: METRONIDAZOLE 500 MG PREMIX 100 ML IV SCH ×3 (01:54→17:37)
[2019-06-02 04:00] VITALS: BP 119/59
[2019-06-02] MEDS: HYDROMORPHONE HCL/PF 2MG/ML CPJ IV PRN ×5 (04:00→21:29)
[2019-06-02] MEDS: SODIUM CHLORIDE 0.45% 1,000 ML IV SCH ×3 (04:00→21:30)
[2019-06-02 06:46] LABS: CHLORIDE 107 mEq/L (98-107)
[2019-06-02 06:49] LABS: BASOPHILS % 0.3 % (0.0-2.0); EOSINOPHILS % 0.1 % (0.0-5.0); HEMATOCRIT. 42.6 % (42.0-52.0); HEMOGLOBIN. 13.9 g/dL (14.0-18.0); LYMPHOCYTES % 17.2 % (20.0-50.0); MEAN CORPUSCULAR VOLUME 82.5 fL (80.0-94.0); MEAN PLATELET VOLUME 8.8 fl (7.4-10.4); MONOCYTES % 10.6 % (2.0-8.0); NEUTROPHILS % 71.8 % (40.0-76.0); PLATELET 113 x1000/uL (130-400); RED BLOOD CELL COUNT 5.16 mill/uL (4.7-6.1); RED CELL DISTRIBUTION WIDTH 13.8 % (11.6-14.6)
[2019-06-02 08:00] VITALS: BP 111/58
[2019-06-02] MEDS: MESALAMINE 400 MG CAPSULE.DR PO SCH ×3 (08:20→17:25)
[2019-06-02] MEDS: LEVOFLOXACIN 250MG PREMIX 50 ML IV SCH (10:33)
[2019-06-02 12:00] VITALS: BP 101/53
[2019-06-02 16:00] VITALS: BP 120/58
[2019-06-02 20:00] VITALS: BP 126/82
[2019-06-03] VITALS: BP 115/65
[2019-06-03] MEDS: METRONIDAZOLE 500 MG PREMIX 100 ML IV SCH ×2 (01:49→10:27)
[2019-06-03] MEDS: HYDROMORPHONE HCL/PF 2MG/ML CPJ IV PRN ×4 (01:50→14:04)
[2019-06-03 04:00] VITALS: BP 108/59
[2019-06-03] MEDS: SODIUM CHLORIDE 0.45% 1,000 ML IV SCH ×2 (05:54→14:07)
[2019-06-03 06:01] LABS: BASOPHILS % 0.3 % (0.0-2.0); EOSINOPHILS % 0.6 % (0.0-5.0); HEMATOCRIT. 42.9 % (42.0-52.0); LYMPHOCYTES % 27.6 % (20.0-50.0); MEAN CORPUSCULAR HEMOGLOBIN 26.9 pg (28.0-32.0); MEAN CORPUSCULAR VOLUME 82.5 fL (80.0-94.0); MEAN PLATELET VOLUME 9.2 fl (7.4-10.4); MONOCYTES % 11.9 % (2.0-8.0); NEUTROPHILS % 59.6 % (40.0-76.0); PLATELET 106 x1000/uL (130-400)
[2019-06-03 06:33] LABS: CHLORIDE 107 mEq/L (98-107)
[2019-06-03 08:00] VITALS: BP 120/77
[2019-06-03] MEDS: MESALAMINE 400 MG CAPSULE.DR PO SCH ×2 (08:32→13:58)
[2019-06-03] MEDS: LEVOFLOXACIN 250MG PREMIX 50 ML IV SCH (11:39)
[2019-06-03 12:00] VITALS: BP 114/59
[2019-06-03 14:46] VITALS: BP 114/59
== END 2019-06-03 15:15 | disposition home or self-care (01) | DRG 720 ==
LOC: ER 16:00 → 6WST 18:58 → ENRESERV 20:14 → 6WST 22:04
PROVIDERS: ADMIT Internal Medicine; ATTEND Internal Medicine
DX: A41.9 Sepsis, unspecified organism (principal); N17.0 Acute kidney failure with tubular necrosis; E87.2 Acidosis; E87.0 Hyperosmolality and hypernatremia; E87.1 Hypo-osmolality and hyponatremia; K50.90 Crohn's disease, unspecified, without complications; F12.90 Cannabis use, unspecified, uncomplicated; N18.9 Chronic kidney disease, unspecified; F20.9 Schizophrenia, unspecified; F31.9 Bipolar disorder, unspecified; Z86.19 Personal history of other infectious and parasitic diseases; Z68.1 Body mass index [BMI] 19.9 or less, adult; Z76.5 Malingerer [conscious simulation]
CPT/HCPCS: 36415; 71045; 74176; 76770; 80048; 80305; 81003; 82270; 82705; 83605; 87015; 87045; 87177; 87209; 87427; 87449; 87493; 89055; 93005; 96365; 99285; C1893; J1170; J1956; J2270; J2405; J3490; J7030

== ENCOUNTER 2019-06-06 12:20 | Emergency (ER) | payer MEDICAID ==
[~2019-06-06] VITALS: Ht 175.3 cm; Wt 75.0 kg
[2019-06-06] MEDS ORDERED: MORPHINE SULFATE 4 MG/ML CPJ (NOT FOR IM USE) IV STA (13:24)
[2019-06-06] MEDS ORDERED: ONDANSETRON HCL 4MG/2ML INJ IV STA (13:24)
[2019-06-06] MEDS ORDERED: SODIUM CHLORIDE 0.9% 1,000 ML IV ONE (13:24)
[2019-06-06 14:22] LABS: CHLORIDE 110 mEq/L (98-107); PROTHROMBIN TIME 10.5 sec (9.6-11.0)
[2019-06-06 14:26] LABS: ETHANOL BLOOD < 10 mg/dL
[2019-06-06 14:34] LABS: BASOPHILS % 0.3 % (0.0-2.0); EOSINOPHILS % 0.3 % (0.0-5.0); HEMATOCRIT. 48.8 % (42.0-52.0); HEMOGLOBIN. 16.2 g/dL (14.0-18.0); LYMPHOCYTES % 11.2 % (20.0-50.0); MEAN CORPUSCULAR HEMOGLOBIN 27.3 pg (28.0-32.0); MEAN CORPUSCULAR VOLUME 82.2 fL (80.0-94.0); MEAN PLATELET VOLUME 9.4 fl (7.4-10.4); MONOCYTES % 7.7 % (2.0-8.0); NEUTROPHILS % 80.5 % (40.0-76.0); PLATELET 185 x1000/uL (130-400); RED BLOOD CELL COUNT 5.94 mill/uL (4.7-6.1); RED CELL DISTRIBUTION WIDTH 13.5 % (11.6-14.6)
[2019-06-06 15:57] VITALS: BP 123/73
[2019-06-06] MEDS ORDERED: HALOPERIDOL LACTATE 5MG/ML VIAL IM ONE (16:00)
[2019-06-06] MEDS ORDERED: MAGNESIUM/ALUMINUM HYDROXIDE/SIMETHICONE 30ML UDC PO ONE (16:00)
== END 2019-06-06 16:15 | disposition home or self-care (01) ==
LOC: ER 12:20
DX: R10.9 Unspecified abdominal pain (principal); N28.9 Disorder of kidney and ureter, unspecified; Z99.2 Dependence on renal dialysis
CPT/HCPCS: 36415; 74176; 80053; 80320; 83690; 85025; 85610; 93005; 96374; 96375; 99284; J1630; J2270; J2405; J7030; G0480

== ENCOUNTER 2019-11-11 09:48 | Inpatient (IN) | payer MEDICAID ==
[~2019-11-11] VITALS: Ht 172.7 cm; Wt 72.6 kg
[2019-11-11] MEDS ORDERED: ONDANSETRON HCL 4MG/2ML INJ IV STA (09:55)
[2019-11-11] MEDS ORDERED: MORPHINE SULFATE 4 MG/ML CPJ (NOT FOR IM USE) IV STA (09:55)
[2019-11-11] MEDS ORDERED: SODIUM CHLORIDE 0.9% 1,000 ML IV ONE (10:59)
[2019-11-11 11:09] LABS: HEMATOCRIT. 56.3 % (42.0-52.0); HEMOGLOBIN. 18.7 g/dL (14.0-18.0); MEAN CORPUSCULAR VOLUME 81.3 fL (80.0-94.0); MEAN PLATELET VOLUME 8.9 fl (7.4-10.4); PLATELET 216 x1000/uL (130-400); RED BLOOD CELL COUNT 6.92 mill/uL (4.7-6.1); RED CELL DISTRIBUTION WIDTH 13.8 % (11.6-14.6)
[2019-11-11 11:16] LABS: CHLORIDE 112 mEq/L (98-107)
[2019-11-11 11:21] LABS: INR 1.1; PROTHROMBIN TIME 11.7 sec (9.6-11.0)
[2019-11-11 11:50] LABS: PLATELET ESTIMATE NORMAL
[2019-11-11] MEDS ORDERED: MORPHINE SULFATE 4 MG/ML CPJ (NOT FOR IM USE) IV ONE (12:00)
[2019-11-11] MEDS ORDERED: SODIUM CHLORIDE 0.9% 1,000 ML IV SCH (15:22)
[2019-11-11] MEDS ORDERED: ONDANSETRON HCL 4MG/2ML INJ IV PRN (15:30)
[2019-11-11] MEDS ORDERED: CLONIDINE 0.1MG TABLET PO PRN (15:30)
[2019-11-11] MEDS ORDERED: ENOXAPARIN 40MG/0.4ML SYR SUBCUT SCH (15:30)
[2019-11-11] MEDS: ENOXAPARIN 30MG/0.3ML SYR SUBCUT SCH (16:00)
[2019-11-11] MEDS ORDERED: PIPERACILLIN/TAZOBACTAM 2.25 G in SODIUM CHLORIDE 0.9% 50 ML IV SCH (17:00)
[2019-11-11] MEDS: MORPHINE SULFATE 2 MG/ML CPJ (NOT FOR IM USE) IV PRN ×2 (17:30→21:40)
[2019-11-11] MEDS: SODIUM CHLORIDE 0.45% 1,000 ML IV SCH (18:00)
[2019-11-11 20:15] VITALS: BP 110/74
[2019-11-11 21:15] VITALS: BP 110/74
[2019-11-12] MEDS: MORPHINE SULFATE 2 MG/ML CPJ (NOT FOR IM USE) IV PRN ×3 (01:45→09:47)
[2019-11-12] MEDS: PIPERACILLIN/TAZOBACTAM 2.25 G in SODIUM CHLORIDE 0.9% 50 ML IV SCH ×3 (03:05→18:05)
[2019-11-12 04:00] VITALS: BP 139/72
[2019-11-12 08:00] VITALS: BP 122/67
[2019-11-12] MEDS: PANTOPRAZOLE SODIUM 40 MG/VIAL IV SCH (09:46)
[2019-11-12 12:00] VITALS: BP 150/90
[2019-11-12] MEDS: MORPHINE SULFATE 4 MG/ML CPJ (NOT FOR IM USE) IV PRN ×3 (13:10→21:13)
[2019-11-12] MEDS: SODIUM CHLORIDE 0.45% 1,000 ML IV SCH ×2 (14:34→21:14)
[2019-11-12 16:00] VITALS: BP 136/96
[2019-11-12] MEDS: ENOXAPARIN 30MG/0.3ML SYR SUBCUT SCH (16:48)
[2019-11-12 20:00] VITALS: BP 135/103
[2019-11-13] VITALS: BP 130/95
[2019-11-13 00:04] LABS: COLOR URINE YELLOW (YELLOW); KETONES URINE TRACE (NEGATIVE); LEUKOCYTE ESTERASE URINE NEGATIVE (NEGATIVE); NITRITE URINE NEGATIVE (NEGATIVE); OCCULT BLOOD URINE NEGATIVE (NEGATIVE); PH URINE 5.5 (4.5-8.0); PROTEIN URINE TRACE (NEGATIVE); UROBILINOGEN URINE 0.2 E.U./dL (0.2-1.0)
[2019-11-13 00:05] LABS: CLARITY URINE CLEAR (CLEAR)
[2019-11-13] MEDS: MORPHINE SULFATE 4 MG/ML CPJ (NOT FOR IM USE) IV PRN ×5 (02:48→20:44)
[2019-11-13] MEDS: PIPERACILLIN/TAZOBACTAM 2.25 G in SODIUM CHLORIDE 0.9% 50 ML IV SCH ×2 (02:48→10:37)
[2019-11-13] MEDS: SODIUM CHLORIDE 0.45% 1,000 ML IV SCH ×4 (02:52→21:16)
[2019-11-13 04:00] VITALS: BP 116/75
[2019-11-13 08:00] VITALS: BP 128/89
[2019-11-13] MEDS: PANTOPRAZOLE SODIUM 40 MG/VIAL IV SCH (08:13)
[2019-11-13 12:00] VITALS: BP 165/92
[2019-11-13 15:58] LABS: BASOPHILS % 0.7 % (0.0-2.0); EOSINOPHILS % 0.3 % (0.0-5.0); HEMOGLOBIN. 15.3 g/dL (14.0-18.0); LYMPHOCYTES % 11.4 % (20.0-50.0); MEAN CORPUSCULAR HEMOGLOBIN 27.2 pg (28.0-32.0); MEAN CORPUSCULAR VOLUME 81.5 fL (80.0-94.0); MEAN PLATELET VOLUME 8.9 fl (7.4-10.4); MONOCYTES % 10.3 % (2.0-8.0); NEUTROPHILS % 77.3 % (40.0-76.0); PLATELET 151 x1000/uL (130-400); RED BLOOD CELL COUNT 5.64 mill/uL (4.7-6.1); RED CELL DISTRIBUTION WIDTH 13.3 % (11.6-14.6)
[2019-11-13 16:00] VITALS: BP 130/89
[2019-11-13 16:02] LABS: CHLORIDE 107 mEq/L (98-107)
[2019-11-13 16:10] LABS: C REACTIVE PROTEIN QUANT 2.3 mg/L (0.0-3.0)
[2019-11-13] MEDS: ENOXAPARIN 30MG/0.3ML SYR SUBCUT SCH (16:25)
[2019-11-13 20:00] VITALS: BP 139/92
[2019-11-13] MEDS: PIPERACILLIN/TAZOBACTAM 3.375 G in DEXT 5% WATER 100 ML IV SCH ×2 (20:43→23:32)
[2019-11-14] VITALS: BP 125/84
[2019-11-14] MEDS: MORPHINE SULFATE 4 MG/ML CPJ (NOT FOR IM USE) IV PRN ×4 (01:09→14:13)
[2019-11-14 04:00] VITALS: BP 142/93
[2019-11-14 05:26] VITALS: BP 123/81
[2019-11-14] MEDS: PIPERACILLIN/TAZOBACTAM 3.375 G in DEXT 5% WATER 100 ML IV SCH ×2 (05:27→12:01)
[2019-11-14 06:50] LABS: BASOPHILS % 0.2 % (0.0-2.0); EOSINOPHILS % 0.2 % (0.0-5.0); HEMATOCRIT. 39.1 % (42.0-52.0); HEMOGLOBIN. 13.2 g/dL (14.0-18.0); LYMPHOCYTES % 28.3 % (20.0-50.0); MEAN CORPUSCULAR HEMOGLOBIN 27.5 pg (28.0-32.0); MEAN CORPUSCULAR VOLUME 81.5 fL (80.0-94.0); MEAN PLATELET VOLUME 8.9 fl (7.4-10.4); MONOCYTES % 11.7 % (2.0-8.0); NEUTROPHILS % 59.6 % (40.0-76.0); PLATELET 102 x1000/uL (130-400); RED CELL DISTRIBUTION WIDTH 12.9 % (11.6-14.6)
[2019-11-14 07:02] LABS: CHLORIDE 105 mEq/L (98-107)
[2019-11-14 08:00] VITALS: BP 131/86
[2019-11-14] MEDS: PANTOPRAZOLE SODIUM 40 MG/VIAL IV SCH (08:45)
[2019-11-14] MEDS: SODIUM CHLORIDE 0.45% 1,000 ML IV SCH (10:46)
[2019-11-14 12:00] VITALS: BP 130/82
[2019-11-14 14:49] VITALS: BP 130/82
== END 2019-11-14 14:57 | disposition home or self-care (01) | DRG 245 ==
LOC: ER 09:51 → MICUSO 11:49 → 6EST 20:23
PROVIDERS: ADMIT Internal Medicine; ATTEND Internal Medicine
DX: K50.90 Crohn's disease, unspecified, without complications (principal); N17.9 Acute kidney failure, unspecified; E87.0 Hyperosmolality and hypernatremia; R65.10 Systemic inflammatory response syndrome (SIRS) of non-infectious origin without acute organ dysfunction; E87.2 Acidosis; F20.9 Schizophrenia, unspecified; E86.0 Dehydration; G89.29 Other chronic pain; K57.30 Diverticulosis of large intestine without perforation or abscess without bleeding; F31.9 Bipolar disorder, unspecified; D72.829 Elevated white blood cell count, unspecified; Z76.5 Malingerer [conscious simulation]
CPT/HCPCS: 36415; 74176; 80048; 80053; 81003; 85025; 85651; 86140; 93970; 99285; C9113; J1650; J2270; J2405; J2543; J7030; J7060

== ENCOUNTER 2019-11-15 10:28 | Emergency (ER) | payer MEDICAID ==
[~2019-11-15] VITALS: Ht 175.3 cm; Wt 72.0 kg
[2019-11-15] MEDS ORDERED: SODIUM CHLORIDE 0.9% 1,000 ML IV ONE (10:51)
[2019-11-15] MEDS ORDERED: FAMOTIDINE 20MG/2ML VIAL IV STA (10:51)
[2019-11-15] MEDS ORDERED: MORPHINE SULFATE 4 MG/ML CPJ (NOT FOR IM USE) IV STA (10:51)
[2019-11-15] MEDS ORDERED: ONDANSETRON HCL 4MG/2ML INJ IV STA (10:51)
[2019-11-15 11:23] LABS: BASOPHILS % 0.3 % (0.0-2.0); EOSINOPHILS % 0.1 % (0.0-5.0); HEMATOCRIT. 42.6 % (42.0-52.0); HEMOGLOBIN. 14.4 g/dL (14.0-18.0); LYMPHOCYTES % 13.7 % (20.0-50.0); MEAN CORPUSCULAR HEMOGLOBIN 27.2 pg (28.0-32.0); MEAN CORPUSCULAR VOLUME 80.7 fL (80.0-94.0); MEAN PLATELET VOLUME 8.5 fl (7.4-10.4); MONOCYTES % 8.4 % (2.0-8.0); NEUTROPHILS % 77.5 % (40.0-76.0); PLATELET 119 x1000/uL (130-400); RED BLOOD CELL COUNT 5.28 mill/uL (4.7-6.1); RED CELL DISTRIBUTION WIDTH 12.6 % (11.6-14.6)
[2019-11-15 11:31] LABS: PROTHROMBIN TIME 11.2 sec (9.6-11.0)
[2019-11-15 11:34] LABS: ETHANOL BLOOD < 10 mg/dL
[2019-11-15 12:05] LABS: CHLORIDE 109 mEq/L (98-107)
[2019-11-15 12:20] LABS: CLARITY URINE CLEAR (CLEAR); COLOR URINE YELLOW (YELLOW); KETONES URINE 2+ (NEGATIVE); LEUKOCYTE ESTERASE URINE NEGATIVE (NEGATIVE); NITRITE URINE NEGATIVE (NEGATIVE); OCCULT BLOOD URINE NEGATIVE (NEGATIVE); PH URINE 5.5 (4.5-8.0); PROTEIN URINE NEGATIVE (NEGATIVE); SPECIFIC GRAVITY URINE 1.028 (1.005-1.030); UROBILINOGEN URINE 0.2 E.U./dL (0.2-1.0)
[2019-11-15 12:50] LABS: *BENZODIAZEPINES SCREEN URINE NEGATIVE (NEGATIVE); *COCAINE SCREEN URINE NEGATIVE (NEGATIVE); METHADONE URINE SCREEN NEGATIVE (NEGATIVE)
[2019-11-15 12:51] LABS: *AMPHETAMINES SCREEN URINE NEGATIVE (NEGATIVE); *BARBITURATES SCREEN URINE NEGATIVE (NEGATIVE); CANNABINOID URINE SCREEN PRESUMTIVE POSITIVE (NEGATIVE); OPIATES URINE SCREEN PRESUMTIVE POSITIVE (NEGATIVE); PHENCYCLIDINE URINE SCREEN NEGATIVE (NEGATIVE)
[2019-11-15 15:00] VITALS: BP 130/90
== END 2019-11-15 15:32 | disposition home or self-care (01) ==
LOC: ER 10:41
DX: G89.29 Other chronic pain (principal); R10.84 Generalized abdominal pain; K50.90 Crohn's disease, unspecified, without complications; F11.10 Opioid abuse, uncomplicated; F31.9 Bipolar disorder, unspecified; F20.9 Schizophrenia, unspecified; K21.9 Gastro-esophageal reflux disease without esophagitis
CPT/HCPCS: 36415; 80053; 80305; 80320; 81003; 83690; 85025; 85610; 96374; 96375; 99284; J2270; J2405; J3490; J7030; G0480

== ENCOUNTER 2019-12-28 14:15 | Inpatient (IN) | payer MEDICAID ==
[~2019-12-28] VITALS: Ht 172.7 cm; Wt 69.9 kg
[2019-12-28 17:35] LABS: BASOPHILS % 0.5 % (0.0-2.0); EOSINOPHILS % 0.1 % (0.0-5.0); HEMATOCRIT. 49.9 % (42.0-52.0); HEMOGLOBIN. 16.6 g/dL (14.0-18.0); LYMPHOCYTES % 12.2 % (20.0-50.0); MEAN CORPUSCULAR HEMOGLOBIN 27.2 pg (28.0-32.0); MEAN CORPUSCULAR VOLUME 81.6 fL (80.0-94.0); MEAN PLATELET VOLUME 7.9 fl (7.4-10.4); NEUTROPHILS % 80.2 % (40.0-76.0); PLATELET 197 x1000/uL (130-400); RED BLOOD CELL COUNT 6.11 mill/uL (4.7-6.1); RED CELL DISTRIBUTION WIDTH 14.1 % (11.6-14.6)
[2019-12-28] MEDS ORDERED: MORPHINE SULFATE 4 MG/ML CPJ (NOT FOR IM USE) IV STA (17:38)
[2019-12-28] MEDS ORDERED: ONDANSETRON HCL 4MG/2ML INJ IV STA (17:38)
[2019-12-28] MEDS ORDERED: SODIUM CHLORIDE 0.9% 1,000 ML IV ONE ×2 (17:38→22:45)
[2019-12-28 17:44] LABS: CHLORIDE 110 mEq/L (98-107)
[2019-12-28 22:00] LABS: CLARITY URINE CLEAR (CLEAR); COLOR URINE YELLOW (YELLOW); KETONES URINE TRACE (NEGATIVE); LEUKOCYTE ESTERASE URINE NEGATIVE (NEGATIVE); NITRITE URINE NEGATIVE (NEGATIVE); OCCULT BLOOD URINE NEGATIVE (NEGATIVE); PROTEIN URINE TRACE (NEGATIVE); SPECIFIC GRAVITY URINE 1.049 (1.005-1.030); UROBILINOGEN URINE 0.2 E.U./dL (0.2-1.0)
[2019-12-28] MEDS ORDERED: MAGNESIUM CITRATE 300ML SOLUTION PO ONE (22:45)
[2019-12-28] MEDS ORDERED: KETOROLAC 30MG/ML VIAL IV ONE (22:45)
[2019-12-28] MEDS ORDERED: IOHEXOL-300 100 ML BOTTLE ONE (22:59)
[2019-12-28] MEDS ORDERED: MORPHINE SULFATE 2 MG/ML CPJ (NOT FOR IM USE) IV NR (23:45)
[2019-12-29 01:58] VITALS: BP 124/87
[2019-12-29] MEDS ORDERED: ONDANSETRON HCL 4MG/2ML INJ IV PRN (02:00)
[2019-12-29] MEDS: MORPHINE SULFATE 2 MG/ML CPJ (NOT FOR IM USE) IV PRN ×5 (02:54→23:09)
[2019-12-29] MEDS: SODIUM CHLORIDE 0.9% 1,000 ML IV SCH ×2 (03:00→18:52)
[2019-12-29 08:00] VITALS: BP 111/75
[2019-12-29] MEDS: PANTOPRAZOLE SODIUM 40 MG/VIAL IV SCH (08:40)
[2019-12-29 08:55] LABS: BASOPHILS % 0.4 % (0.0-2.0); HEMATOCRIT. 44.4 % (42.0-52.0); HEMOGLOBIN. 14.7 g/dL (14.0-18.0); LYMPHOCYTES % 15.3 % (20.0-50.0); MEAN CORPUSCULAR HEMOGLOBIN 27.1 pg (28.0-32.0); MEAN CORPUSCULAR VOLUME 81.9 fL (80.0-94.0); MEAN PLATELET VOLUME 8.5 fl (7.4-10.4); MONOCYTES % 9.5 % (2.0-8.0); NEUTROPHILS % 74.8 % (40.0-76.0); PLATELET 167 x1000/uL (130-400); RED BLOOD CELL COUNT 5.43 mill/uL (4.7-6.1); RED CELL DISTRIBUTION WIDTH 13.8 % (11.6-14.6)
[2019-12-29 09:02] LABS: CHLORIDE 109 mEq/L (98-107)
[2019-12-29 16:00] VITALS: BP 116/78
[2019-12-29 20:00] VITALS: BP 112/76
[2019-12-30] VITALS: BP 110/78
[2019-12-30] MEDS: MORPHINE SULFATE 2 MG/ML CPJ (NOT FOR IM USE) IV PRN ×2 (03:25→09:21)
[2019-12-30 04:00] VITALS: BP 115/80
[2019-12-30] MEDS: SODIUM CHLORIDE 0.9% 1,000 ML IV SCH (06:26)
[2019-12-30 08:00] VITALS: BP 122/80
[2019-12-30] MEDS: PANTOPRAZOLE SODIUM 40 MG/VIAL IV SCH (09:20)
[2019-12-30 12:00] VITALS: BP 128/71
[2019-12-30 14:29] VITALS: BP 128/71
[2019-12-30] MEDS ORDERED: FAMOTIDINE 20MG/2ML VIAL IV SCH (21:00)
== END 2019-12-30 17:20 | disposition home or self-care (01) | DRG 245 ==
LOC: ER 14:32 → 6EST 20:02 → CANRESERV 20:42 → ENRESERV 20:42
PROVIDERS: ADMIT Internal Medicine; ATTEND Internal Medicine
PROC: 02HV33Z Insertion of Infusion Device into Superior Vena Cava, Percutaneous Approach (ICD-10-PCS; principal; 2019-12-29)
PROC: B548ZZA Ultrasonography of Superior Vena Cava, Guidance (ICD-10-PCS; 2019-12-29)
DX: K50.90 Crohn's disease, unspecified, without complications (principal); R11.2 Nausea with vomiting, unspecified; Z79.899 Other long term (current) drug therapy
CPT/HCPCS: 36415; 36573; 74177; 76937; 80048; 80053; 81003; 85025; 99285; C1725; C9113; J2270; J2405; J7030; Q9967

== ENCOUNTER 2020-01-10 21:48 | Inpatient (IN) | payer MEDICAID ==
[~2020-01-10] VITALS: Ht 175.3 cm; Wt 59.0 kg
[2020-01-10] MEDS ORDERED: SODIUM CHLORIDE 0.9% 1,000 ML IV ONE (23:25)
[2020-01-10] MEDS ORDERED: MORPHINE SULFATE 4 MG/ML CPJ (NOT FOR IM USE) IV STA (23:25)
[2020-01-10] MEDS ORDERED: ONDANSETRON HCL 4MG/2ML INJ IV STA (23:25)
[2020-01-11 00:31] LABS: CLARITY URINE CLEAR (CLEAR); COLOR URINE YELLOW (YELLOW); KETONES URINE 2+ (NEGATIVE); LEUKOCYTE ESTERASE URINE NEGATIVE (NEGATIVE); NITRITE URINE NEGATIVE (NEGATIVE); OCCULT BLOOD URINE NEGATIVE (NEGATIVE); PH URINE >=9.0 (4.5-8.0); PROTEIN URINE TRACE (NEGATIVE); SPECIFIC GRAVITY URINE 1.026 (1.005-1.030)
[2020-01-11 01:27] LABS: BASOPHILS % 0.2 % (0.0-2.0); EOSINOPHILS % 0.3 % (0.0-5.0); HEMATOCRIT. 44.5 % (42.0-52.0); HEMOGLOBIN. 14.5 g/dL (14.0-18.0); LYMPHOCYTES % 8.7 % (20.0-50.0); MEAN CORPUSCULAR HEMOGLOBIN 26.7 pg (28.0-32.0); MEAN CORPUSCULAR VOLUME 82.2 fL (80.0-94.0); MEAN PLATELET VOLUME 8.2 fl (7.4-10.4); MONOCYTES % 6.2 % (2.0-8.0); NEUTROPHILS % 84.6 % (40.0-76.0); PLATELET 174 x1000/uL (130-400); RED BLOOD CELL COUNT 5.42 mill/uL (4.7-6.1); RED CELL DISTRIBUTION WIDTH 14.4 % (11.6-14.6)
[2020-01-11 01:34] LABS: CHLORIDE 106 mEq/L (98-107)
[2020-01-11 01:35] LABS: INR 1.1; PROTHROMBIN TIME 11.1 sec (9.6-11.0)
[2020-01-11 08:00] VITALS: BP 121/71
[2020-01-11 09:37] VITALS: BP 121/71
[2020-01-11] MEDS ORDERED: DOCUSATE SODIUM 100MG CAPSULE PO PRN (10:30)
[2020-01-11] MEDS ORDERED: ACETAMINOPHEN 325MG TABLET PO PRN (10:30)
[2020-01-11] MEDS ORDERED: GUAIFENESIN 200MG/10ML SUGAR FREE UDC PO PRN (10:30)
[2020-01-11] MEDS ORDERED: HYDROCODONE/ACETAMINOPHEN 10/325MG TABLET PO PRN (10:30)
[2020-01-11] MEDS ORDERED: ONDANSETRON HCL 4MG/2ML INJ IV PRN (10:30)
[2020-01-11] MEDS ORDERED: MAGNESIUM/ALUMINUM HYDROXIDE/SIMETHICONE 30ML UDC PO PRN (10:30)
[2020-01-11] MEDS ORDERED: IPRATROPIUM/ALBUTEROL 0.5-3(2.5)MG/3ML NEB HHN PRN (10:30)
[2020-01-11] MEDS ORDERED: DIPHENHYDRAMINE 50MG/ML VIAL IV PRN (10:30)
[2020-01-11] MEDS ORDERED: CLONIDINE 0.1MG TABLET PO PRN (10:30)
[2020-01-11] MEDS ORDERED: LORAZEPAM 2MG/ML CPJ IV PRN (10:30)
[2020-01-11] MEDS: DOCUSATE SODIUM 100MG CAPSULE PO SCH ×2 (10:45→17:18)
[2020-01-11] MEDS: ENOXAPARIN 40MG/0.4ML SYR SUBCUT SCH (11:00)
[2020-01-11] MEDS: SODIUM CHLORIDE 0.45% 1,000 ML IV SCH ×2 (12:16→21:49)
[2020-01-11] MEDS: SODIUM CHLORIDE 0.9% INJ 3ML FLUSH IVF SCH ×2 (13:28→21:50)
[2020-01-11] MEDS ORDERED: TRAMADOL 50MG TABLET PO PRN (15:15)
[2020-01-11] MEDS: MORPHINE SULFATE 2 MG/ML CPJ (NOT FOR IM USE) IV PRN ×2 (17:50→21:51)
[2020-01-11 19:42] LABS: CANNABINOID URINE SCREEN PRESUMTIVE POSITIVE (NEGATIVE)
[2020-01-11 19:43] LABS: *AMPHETAMINES SCREEN URINE NEGATIVE (NEGATIVE); *BARBITURATES SCREEN URINE NEGATIVE (NEGATIVE); *BENZODIAZEPINES SCREEN URINE NEGATIVE (NEGATIVE); *COCAINE SCREEN URINE NEGATIVE (NEGATIVE); METHADONE URINE SCREEN NEGATIVE (NEGATIVE); OPIATES URINE SCREEN PRESUMTIVE POSITIVE (NEGATIVE)
[2020-01-11 19:44] LABS: PHENCYCLIDINE URINE SCREEN NEGATIVE (NEGATIVE)
[2020-01-11 20:00] VITALS: BP 122/78
[2020-01-12] VITALS: BP 126/89
[2020-01-12] MEDS: MORPHINE SULFATE 2 MG/ML CPJ (NOT FOR IM USE) IV PRN ×2 (02:17→06:16)
[2020-01-12 04:00] VITALS: BP_SYST 116; BP_SYST 147; BP_DIAS 74; BP_DIAS 84
[2020-01-12] MEDS: SODIUM CHLORIDE 0.9% INJ 3ML FLUSH IVF SCH (06:16)
[2020-01-12 08:00] VITALS: BP 122/76
[2020-01-12] MEDS: DOCUSATE SODIUM 100MG CAPSULE PO SCH (09:00)
[2020-01-12] MEDS: ENOXAPARIN 40MG/0.4ML SYR SUBCUT SCH (09:00)
[2020-01-12 09:55] VITALS: BP 122/76
[2020-01-15 10:08] LABS: SACCHAROMYCES CEREVISIAE IGG <20.0 Units (0.0-24.9)
[2020-01-16 09:10] LABS: SACCHAROMYCES CEREVISIAE IGM 24.7 Units (0.0-24.9)
[2020-01-16 13:11] LABS: ATYPICAL pANCA <1:20 titer (Neg:<1:20)
== END 2020-01-12 10:30 | disposition home or self-care (01) | DRG 251 ==
LOC: ER 21:48 → 6WST 01-11 00:49 → ENRESERV 01-11 08:35 → 6EST 01-11 09:51
PROVIDERS: ADMIT Internal Medicine; ATTEND Internal Medicine
DX: R10.9 Unspecified abdominal pain (principal); E87.0 Hyperosmolality and hypernatremia; E87.2 Acidosis; F12.90 Cannabis use, unspecified, uncomplicated; F20.9 Schizophrenia, unspecified; K50.90 Crohn's disease, unspecified, without complications; K57.30 Diverticulosis of large intestine without perforation or abscess without bleeding; Z76.5 Malingerer [conscious simulation]; Z88.8 Allergy status to other drugs, medicaments and biological substances
CPT/HCPCS: 36415; 74176; 80053; 80305; 81003; 83605; 85025; 86256; 86671; 93005; 99285; J1650; J2270; J2405; J7030

== ENCOUNTER 2020-09-08 09:48 | Inpatient (IN) | payer MEDICAID ==
[~2020-09-08] VITALS: Ht 167.4 cm; Wt 59.0 kg
[~2020-09-08 09:48] MED LIST changes: -ALPR0.5T PO; -DIAZ5TAB PO; -GABA-531 PO; -LORA1TAB PO; -MESA1.2T PO; -OLAN10TA3 PO; -OMEP20TA2 PO; -PENTASA PO; -PRED5TAB48 PO; +dulcolax
[2020-09-08] MEDS ORDERED: SODIUM CHLORIDE 0.9% 1000ML BAG (SEPSIS BOLUS) IV ONE (10:15)
[2020-09-08] MEDS ORDERED: MORPHINE SULFATE 4 MG/ML CPJ (NOT FOR IM USE) IV ONE ×2 (10:30→14:30)
[2020-09-08] MEDS ORDERED: ONDANSETRON HCL 4MG/2ML INJ IV ONE (10:30)
[2020-09-08] MEDS: FAMOTIDINE 20MG/2ML VIAL IV SCH (10:42)
[2020-09-08 11:00] LABS: BASOPHILS % 0.4 % (0.0-2.0); HEMATOCRIT. 47.8 % (42.0-52.0); HEMOGLOBIN. 15.4 g/dL (14.0-18.0); LYMPHOCYTES % 8.4 % (20.0-50.0); MEAN CORPUSCULAR HEMOGLOBIN 26.7 pg (28.0-32.0); MEAN CORPUSCULAR VOLUME 82.6 fL (80.0-94.0); MEAN PLATELET VOLUME 8.1 fl (7.4-10.4); MONOCYTES % 6.2 % (2.0-8.0); PLATELET 192 x1000/uL (130-400); RED BLOOD CELL COUNT 5.79 mill/uL (4.7-6.1); RED CELL DISTRIBUTION WIDTH 13.3 % (11.6-14.6)
[2020-09-08] MEDS ORDERED: METHYLPREDNISOLONE SOD SUCC 40 MG/ML VIAL IV NR (11:00)
[2020-09-08 11:09] LABS: CHLORIDE 105 mEq/L (98-107)
[2020-09-08 11:10] LABS: PROTHROMBIN TIME 10.9 sec (9.6-11.0)
[2020-09-08 11:16] LABS: C REACTIVE PROTEIN QUANT 0.4 mg/L (0.0-3.0)
[2020-09-08] MEDS ORDERED: IOHEXOL-300 100 ML BOTTLE ONE (14:08)
[2020-09-08] MEDS ORDERED: MAGNESIUM/ALUMINUM HYDROXIDE/SIMETHICONE 30ML UDC PO PRN (15:30)
[2020-09-08] MEDS ORDERED: CLONIDINE 0.1MG TABLET PO PRN (15:30)
[2020-09-08] MEDS ORDERED: HYDROCODONE/ACETAMINOPHEN 10/325MG TABLET PO PRN (15:30)
[2020-09-08] MEDS ORDERED: LORAZEPAM 2MG/ML CPJ IV PRN (15:30)
[2020-09-08] MEDS ORDERED: NA PHOS,M-B/NA PHOS,DI-BA ENEMA 118ML PR PRN (15:30)
[2020-09-08] MEDS ORDERED: GUAIFENESIN 200MG/10ML SUGAR FREE UDC PO PRN (15:30)
[2020-09-08] MEDS ORDERED: ACETAMINOPHEN 325MG TABLET PO PRN (15:30)
[2020-09-08] MEDS ORDERED: IPRATROPIUM/ALBUTEROL 0.5-3(2.5)MG/3ML NEB NEB PRN (15:30)
[2020-09-08] MEDS ORDERED: ONDANSETRON HCL 4MG/2ML INJ IV PRN (15:30)
[2020-09-08] MEDS ORDERED: DOCUSATE SODIUM 100MG CAPSULE PO PRN (15:30)
[2020-09-08] MEDS ORDERED: DIPHENHYDRAMINE 50MG/ML VIAL IV PRN (15:30)
[2020-09-08 15:51] LABS: CLARITY URINE CLEAR (CLEAR); COLOR URINE YELLOW (YELLOW); KETONES URINE TRACE (NEGATIVE); LEUKOCYTE ESTERASE URINE NEGATIVE (NEGATIVE); NITRITE URINE NEGATIVE (NEGATIVE); OCCULT BLOOD URINE NEGATIVE (NEGATIVE); PH URINE >=9.0 (4.5-8.0); PROTEIN URINE 2+ (NEGATIVE); SPECIFIC GRAVITY URINE 1.086 (1.005-1.030)
[2020-09-08] MEDS: MORPHINE SULFATE 2 MG/ML CPJ (NOT FOR IM USE) IV PRN ×3 (16:55→21:06)
[2020-09-08] MEDS: SODIUM CHLORIDE 0.45% 1,000 ML IV SCH ×2 (16:55→20:45)
[2020-09-08] MEDS ORDERED: ENOXAPARIN 40MG/0.4ML SYR SUBCUT SCH (17:00)
[2020-09-08 22:40] VITALS: BP 120/77
[2020-09-08 22:55] VITALS: BP 120/77
[2020-09-09] MEDS: METHYLPREDNISOLONE SOD SUCC 125 MG/2 ML VIAL IV SCH ×5 (00:25→17:31)
[2020-09-09] MEDS ORDERED: PANTOPRAZOLE SODIUM 40 MG/VIAL IV NR (01:00)
[2020-09-09] MEDS: MORPHINE SULFATE 2 MG/ML CPJ (NOT FOR IM USE) IV PRN ×5 (01:18→21:23)
[2020-09-09 02:55] LABS: CHLORIDE 101 mEq/L (98-107)
[2020-09-09 04:00] VITALS: BP 133/82
[2020-09-09] MEDS: SODIUM CHLORIDE 0.45% 1,000 ML IV SCH (05:12)
[2020-09-09] MEDS ORDERED: PNEUMOCOCCAL 23-VAL P-SAC VAC 0.5 ML IM ONE (08:00)
[2020-09-09 08:10] VITALS: BP 133/85
[2020-09-09 08:19] LABS: CHLORIDE 104 mEq/L (98-107)
[2020-09-09 08:30] LABS: HEMATOCRIT. 49.5 % (42.0-52.0); MEAN CORPUSCULAR HEMOGLOBIN 27.3 pg (28.0-32.0); MEAN CORPUSCULAR VOLUME 90.2 fL (80.0-94.0); MEAN PLATELET VOLUME 8.7 fl (7.4-10.4); PLATELET 130 x1000/uL (130-400); RED BLOOD CELL COUNT 5.49 mill/uL (4.7-6.1)
[2020-09-09 08:35] LABS: LDL CHOLESTEROL 97 mg/dL (5-100)
[2020-09-09 08:36] LABS: HDL CHOLESTEROL 74 mg/dL (40-59)
[2020-09-09] MEDS: FAMOTIDINE 20MG/2ML VIAL IV SCH (09:22)
[2020-09-09] MEDS ORDERED: MORPHINE SULFATE 2 MG/ML CPJ (NOT FOR IM USE) IV PRN (11:30)
[2020-09-09 11:37] LABS: PLATELET ESTIMATE NORMAL
[2020-09-09 12:00] VITALS: BP 121/75
[2020-09-09] MEDS: DEXT 5%/0.45% NACL 1000ML 1,000 ML IV SCH ×2 (14:42→22:13)
[2020-09-09 14:45] LABS: *AMPHETAMINES SCREEN URINE NEGATIVE (NEGATIVE); *BARBITURATES SCREEN URINE NEGATIVE (NEGATIVE); *BENZODIAZEPINES SCREEN URINE NEGATIVE (NEGATIVE); *COCAINE SCREEN URINE NEGATIVE (NEGATIVE); CANNABINOID URINE SCREEN PRESUMTIVE POSITIVE (NEGATIVE); OPIATES URINE SCREEN PRESUMTIVE POSITIVE (NEGATIVE); PHENCYCLIDINE URINE SCREEN NEGATIVE (NEGATIVE)
[2020-09-09 14:46] LABS: METHADONE URINE SCREEN NEGATIVE (NEGATIVE)
[2020-09-09 16:00] VITALS: BP 125/82
[2020-09-09 20:00] VITALS: BP 120/76
[2020-09-10] VITALS: BP 109/72
[2020-09-10] MEDS: METHYLPREDNISOLONE SOD SUCC 125 MG/2 ML VIAL IV SCH ×4 (00:23→23:44)
[2020-09-10] MEDS: MORPHINE SULFATE 2 MG/ML CPJ (NOT FOR IM USE) IV PRN ×4 (03:44→22:37)
[2020-09-10 04:00] VITALS: BP 129/80
[2020-09-10] MEDS: DEXT 5%/0.45% NACL 1000ML 1,000 ML IV SCH ×3 (06:44→16:23)
[2020-09-10 08:00] VITALS: BP 126/78
[2020-09-10] MEDS: FAMOTIDINE 20MG/2ML VIAL IV SCH (09:07)
[2020-09-10 09:22] LABS: HEMATOCRIT 43.5 % (42.0-52.0); HEMOGLOBIN 14.1 g/dL (14.0-18.0); MEAN CORPUSCULAR HEMOGLOBIN 26.6 pg (28.0-32.0); MEAN CORPUSCULAR VOLUME 82.3 fL (80.0-94.0); PLATELET 151 x1000/uL (130-400); RED BLOOD CELL COUNT 5.28 mill/uL (4.7-6.1); RED CELL DISTRIBUTION WIDTH 13.6 % (11.6-14.6)
[2020-09-10 12:00] VITALS: BP 120/76
[2020-09-10 16:00] VITALS: BP 124/76
[2020-09-10 20:00] VITALS: BP_SYST 118; BP_SYST 155; BP_DIAS 79; BP_DIAS 87
[2020-09-11] VITALS: BP 126/79
[2020-09-11 04:00] VITALS: BP 120/77
[2020-09-11] MEDS: MORPHINE SULFATE 2 MG/ML CPJ (NOT FOR IM USE) IV PRN ×2 (05:06→11:27)
[2020-09-11] MEDS: METHYLPREDNISOLONE SOD SUCC 125 MG/2 ML VIAL IV SCH ×2 (05:10→11:27)
[2020-09-11] MEDS: DEXT 5%/0.45% NACL 1000ML 1,000 ML IV SCH (05:16)
[2020-09-11 07:25] LABS: HEMATOCRIT. 43.6 % (42.0-52.0); MEAN CORPUSCULAR HEMOGLOBIN 26.6 pg (28.0-32.0); MEAN CORPUSCULAR VOLUME 82.5 fL (80.0-94.0); MEAN PLATELET VOLUME 8.1 fl (7.4-10.4); PLATELET 145 x1000/uL (130-400); RED BLOOD CELL COUNT 5.28 mill/uL (4.7-6.1); RED CELL DISTRIBUTION WIDTH 13.3 % (11.6-14.6)
[2020-09-11 07:40] LABS: CHLORIDE 105 mEq/L (98-107)
[2020-09-11 08:00] VITALS: BP 110/64
[2020-09-11] MEDS: FAMOTIDINE 20MG/2ML VIAL IV SCH (09:13)
[2020-09-11 11:00] LABS: PLATELET ESTIMATE NORMAL
== END 2020-09-11 12:06 | disposition home or self-care (01) | DRG 253 ==
LOC: ER 10:05 → 6EST 14:56 → EDBEDREQ 15:00 → EDBEDREQSVC 15:00 → ENRESERV 17:43
PROVIDERS: ADMIT Internal Medicine; ATTEND Internal Medicine
DX: K62.5 Hemorrhage of anus and rectum (principal); R10.9 Unspecified abdominal pain; E86.0 Dehydration; I10 Essential (primary) hypertension; R17 Unspecified jaundice; D72.829 Elevated white blood cell count, unspecified; E87.1 Hypo-osmolality and hyponatremia; F12.90 Cannabis use, unspecified, uncomplicated; F20.9 Schizophrenia, unspecified; G89.29 Other chronic pain; E87.8 Other disorders of electrolyte and fluid balance, not elsewhere classified; Z76.5 Malingerer [conscious simulation]; Z82.49 Family history of ischemic heart disease and other diseases of the circulatory system; Z88.8 Allergy status to other drugs, medicaments and biological substances
CPT/HCPCS: 36415; 71045; 74177; 78278; 80048; 80053; 80061; 80305; 81003; 82270; 83605; 84145; 84484; 85025; 85027; 86140; 93005; 99285; A9560; C9113; J2060; J2270; J2405; J2920; J2930; J3490; J7030; Q9967